=== PATIENT | male | born 1965 | race Caucasian/White ===

== ENCOUNTER 2017-08-27 13:37 | Inpatient (IN) ==
--- NOTE | 2017-08-27 15:59 | Emergency Department Note ---
START Narrative - START START: I examined this patient and my medical decision-making was reviewed with the Resident Physician. I agree with the documented findings, disposition and treatment plan as described except to the extent set forth below. 51-year-old male presents emergency room for right foot and ankle swelling. The swelling has extended approximately up to the knee. No history of DVT. He also had a small abscess on the fifth toe opened up earlier last week with some pus drainage. It is now necrotic appearing on the end. This could be an old blood blister that is healing over as well. We will obtain some plain films of the foot to rule out any gas formation and will also do a right lower extremity Doppler to rule out any DVT as well as some screening lab work. His left leg does not appear anything close to what the right leg looks like. He denies chest pain or shortness of breath. No fevers.
[2017-08-27 16:15] LABS: Basophils # 0.1 K/mcL (0.0-0.2); Basophils % 0.7 %; Eosinophils # 0.3 K/mcL (0.0-0.6); Eosinophils % 3.2 %; Hematocrit 43.1 % (37.5-50.1); Hemoglobin 14.1 g/dL (12.9-16.9); Immature Granulocytes % 0.5 % (0-4); Lymphocytes # 1.9 K/mcL (0.6-4.6); Lymphocytes % 22.8 %; Mean Corpuscular HGB Conc 32.7 g/dL (31.6-35.5); Mean Corpuscular Hemoglobin 29.3 pg (28.0-33.3); Mean Corpuscular Volume 89.6 fL (83.0-100.0); Mean Platelet Volume 9.6 fL (9.4-12.4); Monocytes # 0.8 K/mcL (0.0-1.3); Monocytes % 9.3 %; Neutrophils # 5.3 K/mcL (1.6-8.9); Platelet Count 223 K/mcL (140-400); Red Blood Count 4.81 M/mcL (4.19-5.50); Red Cell Distribution Width 12.8 % (11.5-14.5); Segmented Neutrophils % 63.5 %
[2017-08-27 16:29] LABS: Alanine Aminotransferase 24 Units/L (7-52); Albumin 4.4 g/dL (3.5-5.7); Albumin/Globulin Ratio 1.8 (1.1-2.2); Alkaline Phosphatase 60 Units/L (34-104); Aspartate Amino Transferase 19 Units/L (13-39); BUN/Creatinine Ratio 13 (6-26); Bilirubin,Direct 0.2 mg/dL (0.0-0.2); Bilirubin,Indirect 0.7 mg/dL (0.0-1.2); Bilirubin,Total 0.9 mg/dL (0.3-1.0); Blood Urea Nitrogen 12 mg/dL (6-20); Calcium 9.7 mg/dL (8.6-10.3); Carbon Dioxide 26 mEq/L (23-29); Chloride 108 mEq/L (98-107); Globulin 2.4 g/dL (2.4-3.5); Glucose 107 mg/dL (70-105); Osmolality,Calculated 288 (280-300); Potassium 3.8 mEq/L (3.5-5.1); Sodium 139 mEq/L (136-145); Total Protein 6.8 g/dL (6.4-8.9); eGFR For African Americans > 60 (> 60); eGFR For Non-African Americans > 60 (> 60)
--- NOTE | 2017-08-27 17:59 | Emergency Department Note ---
Disposition Clinical Impression: Cellulitis Qualifiers: Site of cellulitis: extremity Site of cellulitis of extremity: lower extremity Laterality: right Qualified Code(s): L03.115 - Cellulitis of right lower limb Disposition: Admitted As Inpatient Condition: Fair Time of Disposition: 18:02 General Adult HPI - General Chief complaint: ED Extremity Problem,Nontraumatic Stated complaint: R foot swelling Time Seen by Provider: 08/27/17 15:05 Source: patient Mode of arrival: ambulatory Limitations: no limitations Nursing Notes Reviewed: Yes Vital Signs Reviewed: Yes - History of Present Illness HPI Narrative: Patient is a 51-year-old male with a past medical history of an MA with status post stent placement 13 years ago and hypertension presenting to the emergency department for the complaint of a right fifth toe infection. Patient states that the infection began initially 4 weeks ago in which his started out as a small pimple and turned into an abscess. He was seen at an urgent care and prescribed 10 days of Bactrim and he states that the abscess opened and drained and now has this black necrotic-appearing tissue over the bottom surface of the toe. He also has swelling of his right lower extremity that has been worsening with surrounding redness. He denies any fevers or nausea. Denies any history of IV drug use. Denies any known injury to the toe. Denies any recent surgeries or long travels. Pain Scale: 10 - Related Data Previous Rx's Medication Instructions Recorded Sulfamethoxazole/Trimeth DS 1 each PO BID #20 tablet 08/07/17 [Bactrim DS] Allergies Allergy/AdvReac Type Severity Reaction Status Date / Time No Known Allergies Allergy Verified 08/27/17 13:43 All systems ED: reviewed and negative except as stated. Constitutional: Denies: fever, chills Eyes: Denies: vision change Cardiovascular: Denies: chest pain Gastrointestinal: Denies: abdominal pain, nausea, vomiting Genitourinary: Denies: urgency, dysuria Musculoskeletal: Denies: back pain, neck pain Integumentary: Reports: lesions (palmar aspect of right fifth toe. RLE swelling. ) Neurological: Denies: headache Past Medical History - Past Medical History Attestation: Yes The following information was validated with the patient. Medical history: Reports: non-contributory, myocardial infarction Surgical history: Reports: no surgical history Psychiatric history: Reports: no psych history - Social History Smoking Status: Current every day smoker Smokeless Tobacco Status: No Alcohol use: Reports: occasionally Drug use: Reports: none Physical Exam CONSTITUTIONAL: Alert and oriented X3, well-nourished, well appearing, in no apparent distress HEAD: Normocephalic; atraumatic. EYES: PERRL, no scleral icterus. NOSE: The nose is normal in appearance without rhinorrhea RESP: Normal chest excursion with respiration; breath sounds clear and equal bilaterally; no wheezes, rhonchi, or rales CARD: Regular rhythm, without murmurs, rub or gallop ABD: Non-distended; non-tender, soft,without rigidity, rebound or guarding EXT: Patient has good pulses bilateral lower extremities. Good sensation. His right lower extremity appears larger than his left and has erythema from the foot up to the knee. There is no induration or fluctuance present. Appears like it could be early cellulitis. SKIN: Normal for age and race; warm and dry; patient has an area of what appears to be either a scab or area of necrosis to the dorsal aspect of his right fifth toe. There is no active drainage at this time. - General Limitations: no limitations General appearance: alert, in no apparent distress Course Course Narrative: Plan at this time is to order an x-ray of the right lower extremity to look for any signs of subcutaneous gas or bone infection and will also order a Doppler ultrasound of the right lower extremity to rule out a DVT. - Reevaluation(s) Reevaluation #1: Discussed with the patient that his foot x-ray does show the soft tissue swelling to the palmar aspect of his small toe however does not show any evidence of osteomyelitis according to radiologist's interpretation. Discussed with family also has no leukocytosis. His Doppler of his right lower extremity was negative for a DVT. Discussed with the patient plan to obtain blood cultures and initiate IV antibiotics with admission to the hospital for further workup and evaluation. Patient agrees with this plan. I discussed the patient' s case with the hospitalist on-call Dr. Panda he agrees to accept the patient. Patient's initial blood pressure was systolic 200 and 5 repeat blood pressure is 180s systolic. Patient states he knows he has a history of hypertension however he takes no medications for this at home. His heart rate also improved during his stay is currently at 71 bpm. Time: 18:01 Vital Signs Temperature 97.6 F 08/27/17 13:39 Pulse Rate 112 08/27/17 13:39 Respiratory Rate 16 08/27/17 13:39 Blood Pressure 204/105 08/27/17 13:39 O2 Sat by Pulse Oximetry 100 08/27/17 13:39 Temperature 97.9 F 08/27/17 19:01 Pulse Rate 66 08/27/17 19:01 Respiratory Rate 16 08/27/17 19:01 Blood Pressure 206/104 08/27/17 19:01 O2 Sat by Pulse Oximetry 98 08/27/17 19:01 Oxygen Delivery Oxygen Delivery Room Air Medical Decision Making - Medical Records Medical records reviewed: Yes I reviewed the patient's medical records. - Lab Data Lab results reviewed: Yes I reviewed the patient's lab results. Result diagrams: 08/27/17 15:58 08/27/17 15:58 Lab Results 08/27/17 08/27/17 Range/Units 15:58 15:58 WBC 8.3 (4.3-11.1) K/mcL RBC 4.81 (4.19-5.50) M/mcL Hgb 14.1 (12.9-16.9) g/dL Hct 43.1 (37.5-50.1) % MCV 89.6 (83.0-100.0) fL MCH 29.3 (28.0-33.3) pg MCHC 32.7 (31.6-35.5) g/dL RDW 12.8 (11.5-14.5) % Plt Count 223 (140-400) K/mcL MPV 9.6 (9.4-12.4) fL Immature Gran % 0.5 (0-4) % Seg Neutrophils % 63.5 % Lymphocytes % 22.8 % Monocytes % 9.3 % Eosinophils % 3.2 % Basophils % 0.7 % Neutrophils # 5.3 (1.6-8.9) K/mcL Lymphocytes # 1.9 (0.6-4.6) K/mcL Monocytes # 0.8 (0.0-1.3) K/mcL Eosinophils # 0.3 (0.0-0.6) K/mcL Basophils # 0.1 (0.0-0.2) K/mcL Sodium 139 (136-145) mEq/L Potassium 3.8 (3.5-5.1) mEq/L Chloride 108 H (98-107) mEq/L Carbon Dioxide 26 (23-29) mEq/L BUN 12 (6-20) mg/dL Creatinine 0.91 (0.70-1.30) mg/dL Est GFR ( Amer) > 60 (> 60) Est GFR (Non-Af Amer) > 60 (> 60) BUN/Creatinine Ratio 13 (6-26) Glucose 107 H (70-105) mg/dL Calculated Osmolality 288 (280-300) Calcium 9.7 (8.6-10.3) mg/dL Total Bilirubin 0.9 (0.3-1.0) mg/dL Direct Bilirubin 0.2 (0.0-0.2) mg/dL Indirect Bilirubin 0.7 (0.0-1.2) mg/dL AST 19 (13-39) Units/L ALT 24 (7-52) Units/L Alkaline Phosphatase 60 (34-104) Units/L Serum Total Protein 6.8 (6.4-8.9) g/dL Albumin 4.4 (3.5-5.7) g/dL Globulin 2.4 (2.4-3.5) g/dL Albumin/Globulin Ratio 1.8 (1.1-2.2) - Radiology Data Radiology results reviewed: Yes I reviewed the patient's radiology results. Toe X-Ray 08/27/17 15:21 IMPRESSION: There is soft tissue swelling and likely ulceration involving the small toe. At this time, however, no radiographic evidence of osteomyelitis is detected. D/ / Otis Sage MD / Otis Sage MD Interpreting Provider: Otis Sage MD
[2017-08-27] MEDS ORDERED: Naloxone 0.4 MG/ML INJ IVP PRN (18:44)
--- NOTE | 2017-08-27 19:00 | Internal Med History&Physical ---
Date of Encounter: 08/27/17 Time of Encounter: 18:00 Assessment and Plan (1) Cellulitis Current visit: No Status: Acute Acute cellulitis of the RLE. Pt. reports pain and swelling in fifth digit of right foot for almost one month. Went to Urgent Care and placed on Bactrim. Finished Bactrim and pain/swelling increased in foot one week ago. Pain/ swelling extended up right leg to knee w/i past 4 days. Pt. placed on vancomycin in ED. Pt. is not currently sepsis criteria w/WBC of 8.3, RR of 16, HR of 66, and temp of 97.9F. BP currently 206/104. Blood cultures x2. Continuous cardiac telemetry. CT of the rt foot w/contrast ordered stat to r/o gas/fluid presence. Will continue IVPB vancomycin w/pharmacy dosing and add IVPB Rocephin 2,000 mg daily. Will adjust abx coverage based on culture results. Monitor pt. and f/u labs for signs of increasing infection/sepsis criteria. Supplemental O2 w/titration and SpO2 monitoring PRN. Falls/safety precautions. Pt. discussed w/Dr. Felipe who agrees w/plan of care. Pt. is high risk for further morbidity and infection based on worsening sx following OP PO abx, hx, and risk factors w/o medications. Inpatient. Qualifiers: Site of cellulitis: extremity Site of cellulitis of extremity: lower extremity Laterality: right Qualified Code(s): L03.115 - Cellulitis of right lower limb (2) Pain of right lower extremity Current visit: No Status: Acute Acute pain, erythema, and edema of RLE from foot to knee. Pt. reports that he does not like pain medications and would rather avoid. Tylenol 650 mg Q6HR PRN ordered and will add hydrocodone PRN for moderate/breakthrough pain if warranted. Falls/safety precautions. (3) HTN (hypertension) Current visit: No Status: Chronic Hx of chronic HTN w/o medication coverage currently. Will monitor pt. and VS. Hydralazine 10 mg IVP Q6HR PRN if SBP >180 and/or DBP >100 w/order to not administer if HR >100. Qualifiers: Hypertension type: essential hypertension Qualified Code(s): I10 - Essential (primary) hypertension (4) HLD (hyperlipidemia) Current visit: No Status: Chronic Hx of chronic HLD. Pt. stopped taking statin d/t bilateral leg pain. No current statin coverage. Lipid panel in a.m. labs. Qualifiers: Hyperlipidemia type: pure hypercholesterolemia Qualified Code(s): E78.00 - Pure hypercholesterolemia, unspecified; E78.0 - Pure hypercholesterolemia (5) Prediabetes Current visit: No Status: Chronic Hx of pre-diabetes w/o knowledge of current status. Pt. does not take any medications for diabetes currently. A1c in a.m. labs. (6) Gout Current visit: No Status: Chronic Hx of chronic gout. Pt. states he takes prednisone 10 mg for flare-ups PRN which works for him. Uric acid ordered. Qualifiers: Gout site: unspecified site Gout etiology: unspecified cause Chronicity: chronic Presence of tophus: without tophus Qualified Code(s): M1A.9XX0 - Chronic gout, unspecified, without tophus (tophi) (7) Tobacco abuse Current visit: No Status: Chronic Hx of chronic tobacco abuse. Pt. reports smoking 2-3 PPD. Denies interest in quitting at this time. Denies need for nicotine patch. (8) DVT prophylaxis Current visit: No Status: Acute Lovenox 40 mg SQ 0600 daily for DVT prophylaxis. Monitor pt. for signs of bleeding. Internal Medicine - H&P: HPI Chief complaint: Swelling and pain in RLE Admitted From: Emergency Dept Plans for Post Hospital Care: Home History of present illness: Mr. Arnold is a 51 year old male w/PMH of previous DE w/stent x1, hypertension, hyperlipidemia, prediabetes, and gout presents from the ED with chief complaint of pain and swelling in his right lower extremity that began 3 weeks ago. Patient states he went to urgent care due to his fifth digit on his right foot being painful and swollen. Patient states he was diagnosed with cellulitis and placed on by mouth Bactrim. Patient states he finished Bactrim but foot became more swollen and painful one week ago with swelling extending up his lower leg to the knee 4 days ago. Patient states no alleviating or aggravating factors. Reports he must sleep in chair with rt. foot on flat on floor to prevent throbbing at night. Pt. denies recent illness, fever, chills, nausea, vomiting, headache, cough, changes in vision, chest pain, palpitations, abdominal pain, diarrhea, constipation, dizziness, lightheadedness, unusual bleeding, pre- syncope, or syncope. Past Med Surg Social Fam HX - Past Medical History Source: patient, old records reviewed, obtained from family Medical history: diabetes (Pre-diabetes), hyperlipidemia, hypertension, myocardial infarction, other (Gout) Psychiatric history: no psych history - Past Surgical History Surgical History: no surgical history - Social History Smoking Status: Current every day smoker Packs per day: 2-3 PPD Smokeless Tobacco Status: No Alcohol use: occasionally Drug use: none Current living situation: Home, With Family Activity Level: Independent ambulation, Very active Recent Out of Country Travel Within the Last 8 Weeks: No Exposure or Possible Exposure to Illness During Travel: No - Family History Father Race: Family Member Ethnicity: Non- Living Status: Age at : 72 Cause of : Gangrene Hx Family Cardiac Disorders: Yes (DE, CABG (Double), HLD, HTN) Hx Family Endocrine Disorder: Yes (DM) Hx Family Musculoskeletal Disorders: Yes (Gout) Mother Race: Family Member Ethnicity: Non- Living Status: Still Living Hx Family Cardiac Disorders: Yes (CVA, HTN) Hx Family Endocrine Disorder: Yes (DM) Brother Race: Family Member Ethnicity: Non- Living Status: Still Living Hx Family Endocrine Disorder: Yes (DM) Sister Race: Family Member Ethnicity: Non- Living Status: Still Living Hx Family Psychosocial Disorders: No Internal Medicine - H&P: Meds Sulfamethoxazole/Trimeth DS [Bactrim DS] 1 each PO BID #20 tablet 08/07/17 [Rx] 3 Allergy/AdvReac Type Severity Reaction Status Date / Time No Known Allergies Allergy Verified 08/27/17 13:43 All Systems PM: A 10-system review of systems was performed and is negative for pertinent findings except as documented above in the HPI. - Constitutional Constitutional: as per HPI, no chills, no fever(s), no night sweats - EENT Eyes: no change in vision, no discharge, no pain, no photophobia Ears: no ear discharge, no ear pain, no tinnitus Nose, mouth and throat: no dysphagia, no nasal discharge, no neck pain, no sore throat - Breasts Breasts: as per HPI - Cardiovascular Cardiovascular ROS IM: no chest pain, no diaphoresis, no dyspnea, no lightheadedness, no palpitations, no syncope - Respiratory Respiratory: no cough, no dyspnea, no wheezing, no excessive phlegm production - Gastrointestinal Gastrointestinal: no abdominal pain, no diarrhea, no hematemesis, no hematochezia, no melena, no nausea, no vomiting - Genitourinary Genitourinary ROS male: as per HPI - Musculoskeletal Musculoskeletal ROS IM: no numbness, no tingling - Integumentary Integumentary IM: as per HPI, erythema (Rt fifth digit of foot), sores (Rt fifth digit of foot) - Neurological Neurological ROS: no confusion, no convulsions, no focal weakness, no numbness, no tingling, no tremor(s) - Psychiatric Psychiatric: as per HPI - Endocrine Endocrine IM: as per HPI - Hematologic/Lymphatic Hematologic/Lymphatic: no easy bruising - Allergic/Immunologic Allergic/Immunologic: as per HPI - Constitutional Vitals: Temp Pulse Resp BP Pulse Ox 97.6 F 102 16 179/95 96 08/27/17 13:39 08/27/17 18:15 08/27/17 18:15 08/27/17 18:15 08/27/17 18:15 General appearance: Present: cooperative, mild distress (Pain in right foot), A& O X 3, pleasant, answers questions appropriately - Head Head exam: Present: atraumatic, normocephalic - Eye Eye exam: Present: PERRL, conjuntiva pink, sclera anicteric Pupils: Present: PERRL - ENT ENT exam: Present: normal exam - Neck Neck exam general surgery: Present: normal inspection, supple, trachea midline. Absent: lymphadenopathy - Respiratory Respiratory exam: Present: CTAB. Absent: accessory muscle use, rales, rhonchi, wheezes - Cardiovascular Cardiovascular exam: Present: tachycardia - GI/Abdominal GI/Abdominal exam: Present: normal bowel sounds, soft, no peritoneal signs. Absent: distended, tenderness - Rectal Rectal exam: Present: deferred - Additional comments: exam deferred. - Extremities Exam Extremities exam: Present: warm, radial pulses palpable and symmetrical. Absent : calf tenderness, cyanotic, pedal edema - Back Exam Back exam: Present: normal inspection - Neurological Exam Neurological exam: Present: CN II-XII intact, oriented X3, no focal deficits. Absent: pronater drift, facial droop, speech deficit - Psychiatric Psychiatric exam: Present: normal affect, normal mood - Skin Skin exam: Present: dry, intact Internal Med - H&P Results - Labs CBC & Chem 7: 08/27/17 15:58 08/27/17 15:58 - Diagnostic Studies Other Images Additional comments: Impressions Toe X-Ray 08/27/17 15:21 IMPRESSION: There is soft tissue swelling and likely ulceration involving the small toe. At this time, however, no radiographic evidence of osteomyelitis is detected. D/ / Otis Sage MD / Otis Sage MD Interpreting Provider: Otis Sage MD
[2017-08-27] MEDS: cefTRIAXone 2,000 MG in Water for inj. (sterile) 20 ML 20 ML IVP SCH (21:45)
[2017-08-28 05:03] LABS: Basophils # 0.1 K/mcL (0.0-0.2); Basophils % 0.8 %; Eosinophils # 0.4 K/mcL (0.0-0.6); Eosinophils % 4.8 %; Hematocrit 41.7 % (37.5-50.1); Hemoglobin 13.8 g/dL (12.9-16.9); Immature Granulocytes % 0.6 % (0-4); Lymphocytes # 2.2 K/mcL (0.6-4.6); Lymphocytes % 26.3 %; Mean Corpuscular HGB Conc 33.1 g/dL (31.6-35.5); Mean Corpuscular Hemoglobin 29.2 pg (28.0-33.3); Mean Corpuscular Volume 88.2 fL (83.0-100.0); Mean Platelet Volume 9.6 fL (9.4-12.4); Monocytes # 0.9 K/mcL (0.0-1.3); Neutrophils # 4.9 K/mcL (1.6-8.9); Platelet Count 223 K/mcL (140-400); Red Blood Count 4.73 M/mcL (4.19-5.50); Red Cell Distribution Width 13.1 % (11.5-14.5); Segmented Neutrophils % 57.5 %
[2017-08-28 05:22] LABS: Alanine Aminotransferase 24 Units/L (7-52); Albumin 4.6 g/dL (3.5-5.7); Albumin/Globulin Ratio 1.8 (1.1-2.2); Alkaline Phosphatase 65 Units/L (34-104); Aspartate Amino Transferase 20 Units/L (13-39); BUN/Creatinine Ratio 14 (6-26); Bilirubin,Total 0.9 mg/dL (0.3-1.0); Blood Urea Nitrogen 12 mg/dL (6-20); Calcium 9.7 mg/dL (8.6-10.3); Carbon Dioxide 23 mEq/L (23-29); Chloride 106 mEq/L (98-107); Chol/HDL Ratio 5.1 (0-4.9); Cholesterol 231 mg/dL (< 200); Globulin 2.6 g/dL (2.4-3.5); Glucose 107 mg/dL (70-105); HDL Cholesterol 45 mg/dL (40-59); LDL Cholesterol,Calculated 125 mg/dL (0-99); Magnesium 2.1 mg/dL (1.6-2.6); Osmolality,Calculated 284 (280-300); Potassium 4.1 mEq/L (3.5-5.1); Sodium 137 mEq/L (136-145); Total Protein 7.2 g/dL (6.4-8.9); Triglycerides 303 mg/dL (< 150); eGFR For African Americans > 60 (> 60); eGFR For Non-African Americans > 60 (> 60)
[2017-08-28] MEDS: Acetaminophen 325 MG TABLET PO PRN ×2 (05:33→15:16)
[2017-08-28] MEDS: *HR* Enoxaparin 40 MG/0.4 ML SYRINGE SQ SCH (05:34)
[2017-08-28 09:01] LABS: Estimated Average Glucose 128 mg/dl; Hemoglobin A1C 6.1 %
--- NOTE | 2017-08-28 17:06 | Internal Med Progress Note ---
Date of Encounter: 08/28/17 Time of Encounter: 11:00 - Assessment and plan (1) Toe ulcer, right Current Visit: Yes Status: Acute Assessment and plan: -Patient with necrotic fifth toe on exam -X-ray of toe did not show any evidence of osteomyelitis. -Will continue IV vancomycin and ceftriaxone -Podiatry consulted and appreciate recommendations Qualifiers: Non-pressure ulcer stage: limited to breakdown of skin Qualified Code(s): L97.511 - Non-pressure chronic ulcer of other part of right foot limited to breakdown of skin (2) HTN (hypertension) Current Visit: No Status: Chronic Assessment and plan: Patient's blood pressures are elevated We will start patient on metoprolol tartrate 50 mg twice daily Continue IV hydralazine as needed Qualifiers: Hypertension type: essential hypertension Qualified Code(s): I10 - Essential (primary) hypertension (3) DVT prophylaxis Current Visit: No Status: Acute Assessment and plan: Lovenox subcutaneous - Subjective Interval history: Patient still with significant right foot pain this morning in addition to pedal edema - Constitutional Vitals: Temp Pulse Resp BP Pulse Ox 98.0 F 82 16 184/100 95 08/28/17 15:33 08/28/17 15:33 08/28/17 15:33 08/28/17 15:33 08/28/17 15:33 General appearance: Present: cooperative, mild distress (Pain in right foot), A& O X 3, pleasant, answers questions appropriately - Respiratory Respiratory exam: Present: CTAB. Absent: accessory muscle use, rales, rhonchi, wheezes - Cardiovascular Cardiovascular exam: Present: RRR, +S1, +S2. Absent: diastolic murmur, gallop, rubs, systolic murmur - Expanded Lower Extremities Exam Lower Leg exam: Present: erythema, swelling Ankle exam: Present: erythema, swelling Foot/Toe exam: Present: swelling, tenderness (Right foot edema with right fifth toe necrotic digit) Internal Medicine: Result - Labs CBC & Chem 7: 08/28/17 04:43 08/28/17 04:43 Labs: Short CBC 08/28/17 Range/Units 04:43 WBC 8.5 (4.3-11.1) K/mcL Hgb 13.8 (12.9-16.9) g/dL Hct 41.7 (37.5-50.1) % Plt Count 223 (140-400) K/mcL Neutrophils # 4.9 (1.6-8.9) K/mcL BMP 08/28/17 04:43 Sodium 137 Potassium 4.1 Chloride 106 Carbon Dioxide 23 BUN 12 Creatinine 0.87 Glucose 107 H Calcium 9.7 Liver Function 08/28/17 Range/Units 04:43 Total Bilirubin 0.9 (0.3-1.0) mg/dL AST 20 (13-39) Units/L ALT 24 (7-52) Units/L Alkaline Phosphatase 65 (34-104) Units/L Albumin 4.6 (3.5-5.7) g/dL Consult Discharge Plan - Plan Referrals: NONE,PCP [Primary Care Provider] - Shashank Mijares [Family Provider] -
[2017-08-28] MEDS: cefTRIAXone 2,000 MG in Water for inj. (sterile) 20 ML 20 ML IVP SCH (20:04)
[2017-08-29] MEDS: *HR* Enoxaparin 40 MG/0.4 ML SYRINGE SQ SCH (04:56)
[2017-08-29] MEDS: Acetaminophen 325 MG TABLET PO PRN (04:56)
[2017-08-29 06:31] VITALS: BP 139/79
[2017-08-29 06:35] LABS: Basophils # 0.1 K/mcL (0.0-0.2); Basophils % 0.9 %; Eosinophils # 0.4 K/mcL (0.0-0.6); Eosinophils % 4.5 %; Hematocrit 43.8 % (37.5-50.1); Hemoglobin 14.2 g/dL (12.9-16.9); Immature Granulocytes % 0.7 % (0-4); Immature Platelets 3.8 % (1.1-6.1); Lymphocytes # 1.8 K/mcL (0.6-4.6); Lymphocytes % 19.5 %; Mean Corpuscular HGB Conc 32.4 g/dL (31.6-35.5); Mean Corpuscular Hemoglobin 29.5 pg (28.0-33.3); Mean Corpuscular Volume 91.1 fL (83.0-100.0); Mean Platelet Volume 9.9 fL (9.4-12.4); Monocytes # 0.9 K/mcL (0.0-1.3); Monocytes % 10.3 %; Neutrophils # 5.9 K/mcL (1.6-8.9); Nucleated Red Blood Cells 0.5 /100 WBC (0); Platelet Count 251 K/mcL (140-400); Red Blood Count 4.81 M/mcL (4.19-5.50); Red Cell Distribution Width 13.1 % (11.5-14.5); Segmented Neutrophils % 64.1 %
[2017-08-29 07:10] LABS: Alanine Aminotransferase 22 Units/L (7-52); Albumin 4.4 g/dL (3.5-5.7); Albumin/Globulin Ratio 1.7 (1.1-2.2); Alkaline Phosphatase 65 Units/L (34-104); Aspartate Amino Transferase 17 Units/L (13-39); BUN/Creatinine Ratio 17 (6-26); Bilirubin,Total 0.8 mg/dL (0.3-1.0); Blood Urea Nitrogen 17 mg/dL (6-20); Calcium 9.7 mg/dL (8.6-10.3); Carbon Dioxide 21 mEq/L (23-29); Chloride 107 mEq/L (98-107); Globulin 2.6 g/dL (2.4-3.5); Glucose 104 mg/dL (70-105); Osmolality,Calculated 284 (280-300); Potassium 4.3 mEq/L (3.5-5.1); Sodium 136 mEq/L (136-145); eGFR For African Americans > 60 (> 60); eGFR For Non-African Americans > 60 (> 60)
--- NOTE | 2017-08-29 10:38 | Podiatry Consult Note ---
Date of Encounter: 08/29/17 Time of Encounter: 10:00 Assessment and Plan (1) Toe ulcer, right Current visit: Yes Status: Acute Ischemic ulceration to the distal aspect of toe #5 right foot. RIGHT JAVID- 0.49 LEFT JAVID- 0.91 CT of right foot negative for fluid collection or osteomyelitis. Xray of toe #5 right foot did not show any bony erosion. Venous duplex: Right lower extremity: normal superficial and deep exam. WBC: 9.2, hemoglobin A1C: 6.1 Plan: Recommend consult to Vascular for ischemic ulceration and JAVID of 0.49, right. Spoke with Dr. Arana. Wound care cleanse toe daily with mild soap and water, pat dry, apply santyl with saline moistened 4x4 gauze and tape. Will continue to follow patient closely. Qualifiers: Non-pressure ulcer stage: limited to breakdown of skin Qualified Code(s): L97.511 - Non-pressure chronic ulcer of other part of right foot limited to breakdown of skin (2) Tobacco abuse Current visit: No Status: Chronic History of Present Illness HPI: Mr. Arnold is a 51 year old male admitted to [facility] for cellulitis of the RLE. Patient has a medical history significant for HTN, hyperlipidemia, gout, ND with a one stent. Patient states approximately three weeks ago toe #5 of the right foot became red with an abscess and states there was drainage from underneath the toe nail. Patient denies any injury or trauma. Patient was treated in the Urgent Care on 08/07/17 and prescribed Bactrim. Per family at bedside they have been soaking the toe in epsom salt baths. Patient states the skin on the end of toe then turned black and has had increased swelling to the right foot with pain. Patient states the 5th toe of the right foot starts to burn when he has his feet elevated and the only way to alleviate the discomfort is putting his foot flat on the ground. Patient states he has had to sleep with his feet in the dependent position. Patient does smoke 2-3 pack per day of cigarettes. No c/o fever or chills. Patient denies any surgeries on his legs or feet. Patient states he has never been checked for diabetes. Patient had an Xray of the 5th toe right foot upon arrival, which was unremarkable and a CT of the RLE. CT did not show any fluid collection or osteomyelitis. Patient had ABIs, Right: 0.49, Left: 0.91. Venous duplex: Right lower extremity: normal superficial and deep exam. Past Med Surg Social Fam HX - Past Medical History Medical history: non-contributory, myocardial infarction Psychiatric history: no psych history - Past Surgical History Surgical History: no surgical history - Social History Smoking Status: Current every day smoker Packs per day: 2 Smokeless Tobacco Status: No Alcohol use: occasionally Drug use: none - Family History Father Race: Family Member Ethnicity: Non- Living Status: Age at : 72 Cause of : Gangrene Hx Family Cardiac Disorders: Yes (ND, CABG (Double), HLD, HTN) Hx Family Endocrine Disorder: Yes (DM) Hx Family Musculoskeletal Disorders: Yes (Gout) Mother Name: Mildred Bonilla Age: 80 Race: Family Member Ethnicity: Non- Living Status: Still Living Hx Family Cardiac Disorders: No Hx Family Respiratory Disorders: No Hx Family Cancer: No Hx Family GI Disorders: No Hx Family Genitourinary Disorders: No Hx Family Endocrine Disorder: Yes (DM) Hx Family Musculoskeletal Disorders: No Hx Family Neuromuscular Disorders: No Hx Family Neurologic Disorders: No Hx Family HEENT Disorders: No Hx Family Autoimmune Disorders: No Hx Family Reproductive Disorders: No Hx Family Psychosocial Disorders: No Hx Family Medical Disorders: No Brother Race: Family Member Ethnicity: Non- Living Status: Still Living Hx Family Endocrine Disorder: Yes (DM) Sister Race: Family Member Ethnicity: Non- Living Status: Still Living Hx Family Psychosocial Disorders: No Medications and Allergies Aspirin [Adult Aspirin Regimen] 81 mg PO DAILY 08/28/17 [History] 3 Allergy/AdvReac Type Severity Reaction Status Date / Time No Known Allergies Allergy Verified 08/28/17 10:58 All Systems Reviewed: The remainder of the systems were reviewed and are negative Physical Exam - Constitutional Vitals: Temp Pulse Resp BP Pulse Ox 98.3 F 75 17 139/79 97 08/29/17 06:28 08/29/17 06:28 08/29/17 06:28 08/29/17 06:28 08/29/17 06:28 Exam: General appearance: alert awake oriented X 3. Calm and pleasant, no acute distress.. Vascular: Pedal pulses, DP/PT left and right DP audible with doppler , No evidence of cyanosis or rubor, Edema graded at 1+/4 left, 2+/4 right Skin Temperature warm, No calf pain with manual compression. capillary refill time is immediate to digits. Neurologic: Sensation intact with light touch to foot. . Ulcer: Dried eschar to the distal aspect of toe #5 right foot consistent with an ischemic ulceration, surrounding skin to the plantar aspect is pallored. No pus, no odor, no fluctuance, no streaking, no odor. Results - Labs Result Diagrams: 08/29/17 04:39 08/29/17 04:39 Labs: Abnormal lab results Nucleated RBCs/100 WBC 0.5 /100 WBC (0) H 08/29/17 04:39 ESR 26 mm/hr (0-10) H 08/27/17 19:11 Carbon Dioxide 21 mEq/L (23-29) L 08/29/17 04:39 Hemoglobin A1c 6.1 % (-5.6) H 08/28/17 04:43 Uric Acid 8.4 mg/dL (2.3-7.6) H 08/27/17 19:11 C-Reactive Protein 10 mg/L (Less than 10) H 08/27/17 19:11 Triglycerides 303 mg/dL (< 150) H 08/28/17 04:43 Cholesterol 231 mg/dL (< 200) H 08/28/17 04:43 LDL Cholesterol, Calc 125 mg/dL (0-99) H 08/28/17 04:43 VLDL Cholesterol, Calc 61 mg/dL (< 31) H 08/28/17 04:43 Cholesterol/HDL Ratio 5.1 (0-4.9) H 08/28/17 04:43 H & H 08/29/17 Range/Units 04:39 Hgb 14.2 (12.9-16.9) g/dL Hct 43.8 (37.5-50.1) % All other labs normal. Consult Discharge Plan - Plan Referrals: NONE,PCP [Primary Care Provider] - Shashank Mijares [Family Provider] -
[2017-08-29] MEDS ORDERED: Aminoglycoside Consult 1 EACH MC ONE (13:09)
--- NOTE | 2017-08-29 17:08 | Discharge Summary ---
Date of Encounter: 08/29/17 Time of Encounter: 11:00 - Discharge Diagnosis (1) Toe ulcer, right Priority: Primary Status: Acute Qualifiers: Non-pressure ulcer stage: limited to breakdown of skin Qualified Code(s): L97.511 - Non-pressure chronic ulcer of other part of right foot limited to breakdown of skin (2) HTN (hypertension) Priority: Secondary Status: Chronic Qualifiers: Hypertension type: essential hypertension Qualified Code(s): I10 - Essential (primary) hypertension Hospital course: Patient is a 51-year-old male with past medical history significant for [place] w/ stent x1, hypertension, hyperlipidemia, prediabetes, and gout who presents to the ER on 08/27/17 due to right lower extremity pain. Patient reported that his pain began approximately 2 weeks prior to this admission. Patient stated he went to urgent care due to his fifth digit on his right foot being painful and swollen. Patient also stated that he was diagnosed with cellulitis and placed on by mouth Bactrim. He finished Bactrim but foot became more swollen and painful one week ago with swelling extending up his lower leg to the knee 4 days prior to this admission. During patients hospital stay, JAVID was ordered which showed left JAVID of 0.91 but a right JAVID of 0.49. Podiatry was consulted and suspects ischemic ulceration to the distal aspect of fifth digit of right foot. Recommendations for vascular consult for ischemic ulceration with an JAVID of 0.49 which was made. Patient however left AGAINST MEDICAL ADVICE after risk of not having vascular workup was explained including loss of limb and patient verbalized understanding. - Time Spent with Patient Total time spent providing and/or coordinating discharge services: Less than 30 minutes - Discharge Medications Home Medications: Aspirin [Adult Aspirin Regimen] 81 mg PO DAILY 08/28/17 [History] Allergies/Adverse Reactions: 3 Allergy/AdvReac Type Severity Reaction Status Date / Time No Known Allergies Allergy Verified 08/28/17 10:58 Date of admission: 08/27/17 18:44 Primary care physician: PCP NONE Consults: 08/28/17 17:15 Consult to Podiatry [CONS] Routine Consulting Provider: Podiatry [facility] Reason for Consult: Right fifth is ulceration Call Completed: No 08/29/17 13:00 Consult to Vascular Surgery [CONS] Routine Consulting Provider: Vascular Surgery [place] Reason for Consult: Abnormal JAVID, ulceration toe #5 right foot. Call Completed: Yes - Constitutional Vitals: Temp Pulse Resp BP Pulse Ox 98.3 F 75 17 139/79 97 08/29/17 06:28 08/29/17 06:28 08/29/17 06:28 08/29/17 06:28 08/29/17 06:28 General appearance: Present: cooperative, mild distress (Pain in right foot), A& O X 3, pleasant, no acute distress, answers questions appropriately - Patient Status Disposition: Left Against Medical Advice Condition: Fair - Discharge Instructions Follow Up With: NONE,PCP [Primary Care Provider] - Shashank Mijares [Family Provider] -
--- NOTE | 2017-08-31 18:53 | Electrocardiograph Report ---
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
== END 2017-08-29 13:10 | disposition left against medical advice (07) | DRG 593 ==
LOC: EMEROO 13:37 → 3NENU 13:37
PROVIDERS: ADMIT Student in an Organized Health Care Education/Training Program; ATTEND Hospitalist

== ENCOUNTER 2018-10-25 08:52 | Inpatient (IN) ==
--- NOTE | 2018-10-25 07:34 | Anesthesia Evaluation PreOp ---
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 Any Significant HX Other Medical History: Other (prediabetes) Anesthesia History: No Prior Anesthetic Complications, Past Anesthesia (partial toe amp, stents RLE) Alcohol Use: occasionally Drug use: none Medications and Allergies Aspirin [Adult Aspirin Regimen] 81 mg PO DAILY 08/28/17 [History] Clindamycin [Cleocin] 150 mg PO Q6HR #40 capsule 09/21/18 [Rx] Clopidogrel Bisulfate [Plavix] 75 mg PO DAILY #30 tablet 09/21/18 [Rx] Allergy/AdvReac Type Severity Reaction Status Date / Time clindamycin AdvReac Rash Verified 10/25/18 09:52 - Meds/Allergy Pre-op Review Medications Reviewed: Yes Allergies Reviewed: Yes Beta Blockers on Current Med List: Yes If Beta Blockers taken, Date/Time (Last Dose taken): today 0630 Anesthesia Results - Labs Laboratory Tests 09/23/18 09/23/18 09:19 09:19 Hgb 13.5 Hct 40.8 Plt Count 217 Sodium 136 Potassium 4.4 BUN 17 Creatinine 0.89 Anesthesia Exam Selected Entries 10/25/18 09:12 Temperature 98.5 F Pulse Rate 66 Respiratory Rate 18 Blood Pressure 144/79 O2 Sat by Pulse Oximetry 97 Weight: 86kg NPO (# of Hours): 8 - HEENT Pupil (Motor): EOMI Mallampati: II Teeth: Missing, Poor dentition Oral Opening: Greater than 3 - OPERATOR HELPER LOC: Oriented OPERATOR HELPER Motor: Normal RUE, Normal LUE, Normal RLE, Normal LLE, Normal Face OPERATOR HELPER Sensory: Normal: RUE, LUE, RLE, LLE, Face - Cardiac Rhythm: Regular Murmur: None - Pulmonary Breath Sounds: bilateral Clear Respiratory Effort: Symmetrical Anesthesia Assess/Plan ASA Score: 3 Level of consciousness: Cooperative, Oriented, Tranquil Anesthetic Plan: General Monitoring Plan: Standard Monitors, A-Line Recovery Plan: PACU (agrees to GA and a-line. Will place ECOM tube)
[2018-10-25] MEDS ORDERED: *HR* Midazolam HCl 2 MG/2 ML VIAL ONE (09:09)
[2018-10-25] MEDS ORDERED: *HR* FentaNYL (PF) 100 MCG/2 ML VIAL ONE (09:09)
[2018-10-25] MEDS ORDERED: *HR* Propofol 200 MG/20 ML VIAL IVP ONE ×2 (09:09→14:36)
[2018-10-25] MEDS ORDERED: Dexamethasone 4 MG/ML VIAL ONE (09:14)
[2018-10-25] MEDS ORDERED: Ondansetron 4 MG/2 ML VIAL ONE (09:14)
[2018-10-25] MEDS ORDERED: *HR* Rocuronium Bromide 50 MG/5 ML VIAL ONE (09:14)
[2018-10-25] MEDS ORDERED: Lidocaine -MPF 2% 2 ML VIAL ONE (09:14)
[2018-10-25] MEDS ORDERED: *HR* Remifentanil 2 MG VIAL IVP ONE (09:22)
[2018-10-25] MEDS ORDERED: Albuterol 2.5 MG/3 ML NEBULIZER IH ONE (09:42)
[2018-10-25] MEDS ORDERED: CeFAZolin Syr 2,000MG/20 ML 2,000 MG/20 ML SYRINGE IVPB ONE (09:42)
[2018-10-25] MEDS ORDERED: Ringers Solution, Lactated 1,000 ML IVC SCH ×2 (09:45→10:30)
[2018-10-25] MEDS ORDERED: Heparin 1,000 UNITS/500 mL 500 ML ONE (10:18)
[2018-10-25] MEDS ORDERED: *HR* OxyCODONE Immed Rel 5 MG TABLET PO PRN ×2 (10:28→17:13)
[2018-10-25] MEDS ORDERED: *HR* FentaNYL (PF) 100 MCG/2 ML VIAL IVP PRN (10:28)
--- NOTE | 2018-10-25 10:32 | History & Physical Report ---
Date of Encounter: 10/25/18 Time of Encounter: 10:20 24 Hour HP Update - Instructions Instructions: If the History and Physical is less than 30 days old and was completed prior to A.M. admission and or procedure and has NOT been updated on calendar day of procedure please complete this update prior to performing procedure. - Update Patient reports changes in Medical Condition: No Changes in examination, assessment, or condition: No Changes in Medication: No Preop tests/diagnostics Reviewed: Yes Surgery Remains Indicated: Yes Consent for Planned Operative Procedure(s) Verified: Yes - Pre-Operative Checklist Preoperative Checklist Indicated: Yes Prophylactic Antibiotic Ordered: Yes (vancomycin due to MRSA risk) Home Medications Include Beta Adis: Yes Beta Adis Taken Today (Day of Surgery): Yes Beta Adis Taken Yesterday (Day Prior to Surgery): Yes Is VTE Prophylaxis Indicated?: Yes
[2018-10-25] MEDS ORDERED: Lidocaine -MPF 2% 5 ML VIAL ONE (10:38)
[2018-10-25] MEDS ORDERED: Vancomycin 1,000 MG, Sodium Chloride IRRigation 1,000 ML IR ONE (10:45)
[2018-10-25] MEDS ORDERED: Heparin 1,000 UNITS/500 mL 1,500 ML ONE (11:19)
--- NOTE | 2018-10-25 11:24 | Anesthesia Procedures ---
Date of Encounter: 10/25/18 Time of Encounter: 11:15 Procedures: Anesthesia - Arterial Line Consent obtained: verbal consent Time out performed: Yes Sedation: Versed (mg): 2 Sedation: Fentanyl (mcg): 100 Supplemental Oxygen via Nasal Cannula (L/min): 3 Local Anesthetic: Other (lidocaine 2%) Size (Gauge): 20 Length (inches): 1 3/4 Technique Used: sterile prep Post-Procedure: line taped into place, dry sterile dressing placed Patient tolerated procedure: no complications Complications: none Site: Radial R Vitals: see nurses vitals, VSS throughout
[2018-10-25 12:33] LABS: ABG Base Excess -3 mEq/L (-2 to 3); ABG Chloride 109 mEq/L (98-107); ABG Glucose 105 mg/dL (60-95); ABG HCO3 23 mEq/L (21-27); ABG Ionized Calcium 1.19 mmol/L (1.15-1.35); ABG Oxygen Saturation 100 % (95-98); ABG PCO2 39 mmHg (35-45); ABG PH 7.37 pH Units (7.32-7.45); ABG PO2 507 mmHg (85-104); ABG TCO2 24 mEq/L (20-26)
[2018-10-25] MEDS ORDERED: *HR* Heparin 5,000 UNIT/ML VIAL ONE (14:21)
[2018-10-25] MEDS ORDERED: Protamine Sulfate 50 MG/5 ML VIAL IVP ONE (14:21)
[2018-10-25] MEDS ORDERED: EPHEDrine 50 MG/ML VIAL ONE (14:51)
[2018-10-25] MEDS ORDERED: Vancomycin 1,000 MG VIAL ONE (14:56)
[2018-10-25] MEDS ORDERED: Neostigmine Methylsulfate 3 MG/3 ML SYRINGE ONE (15:19)
--- NOTE | 2018-10-25 16:24 | Operative Note ---
Date of procedure: 10/25/18 Pre-op diagnosis: Peripheral vascular disease with rest pain and ulceration Post-op diagnosis: same Procedure: 1. Right common femoral to right above-knee popliteal bypass with 6 mm ring reinforced PTFE Distaflo mini-cuff graft. 2. Right iliofemoral endarterectomy and deeep femoral endarterectomy. 3. Right popliteal artery endarterectomy. Complications: None Anesthesia: GETA Surgeon: Tee Arana Was there an administrative personal assistant present: No Estimated blood loss (cc): 200 Specimen: Right lower extremity plaque Condition: stable Disposition: PACU Procedure in Detail: Indications: The patient is a 53-year-old male with a history of peripheral vascular disease, tobacco abuse, hypertension, hyperlipidemia and coronary artery disease. The patient was found to have severe peripheral vascular disease with disabling claudication, rest pain and a right fifth digit ulceration was not healing. His found have a right femoral to popliteal artery occlusion. Surgery was recommended to revascularize his leg to reduce his risk of limb loss alleviate his symptoms. Procedure: The patient was identified in the preoperative area. The risks, benefits, and alternatives of the procedure were discussed. All questions were answered. The patient was taken to the operating room and placed in supine position on the operating room table. After the induction of general endotracheal anesthesia, he was cleaned and draped in normal sterile fashion. An oblique incision was made over the right groin sharply. Hemostasis was obtained with electrocautery. Through a process of blunt, sharp, and electrocautery dissection, the right distal extrenal iliac artery and proximal deep and supericial femoral arteries were dissected circumferentially and surrounded with vessel loops. Branching vessels arising from the common femoral artery were also surrounded with vessel loops. An incision was made on the right medial distal thigh sharply. Hemostasis was obtained with electrocautery. Through a process of blunt, sharp, and electrocautery dissection, the distal right above-knee popliteal artery was dissected proximally and distally and surrounded with vessel loops. A graft was tunneled between the popliteal and femoral incisions. The patient received 5000 units of heparin intravenously. Additional heparin was given throughout the case to maintain adequate anticoagulation. The popliteal vessels were occluded and a longitudinal arteriotomy was made in the popliteal artery. Extensive plaque was noted at this level. Using a dental freer and endarterectomy was performed on the distal popliteal artery. Distal endpoints were inspected and no elevated flaps were noted. The distal end of the graft was sutured in place with a running 6-0 Prolene, but not tied. Heparinized saline was infused into the lumen. Tension was applied to the femoral vessel loops. An arteriotomy was made in the common femoral artery. The previously existing stent was noted to extend from the superficial femoral artery into the origin of the common femoral artery and over lying the deep femoral artery. Extensive plaque was also noted extending from the external iliac artery through the common femoral artery and into the deep femoral artery. Weakly pulsatile flow was noted from the external iliac artery. The proximal portion of the stent was excised. Then using a dental freer and endarterectomy was performed in the left distal external iliac, common femoral and deep femoral artery. Strong retrograde flow was noted through the deep femoral artery has strong pulsatile flow was noted through the sternal iliac artery. Endpoints were inspected and no elevated flaps noted. The graft was anastamosed with a running 6-0 Prolene. The vessels were flushed through the graft and heparin was infused into the lumen. The graft was clamped with an atraumatic clamp. Thrombin and gelfoam were used at the proximal anastamosis. The distal arterial anastomosis was completed and prior to completing the closure, the popliteal vessels were flushed and reoccluded. Heparinized saline was infused into the lumen. The anastamosis was tied and then flow was restored. Polyphasic signals were noted distal to the distal anastomosis. However no signals were noted at the level of the ankle. The distal end of the graft was opened longitudinally. A 4-Arabic Beth embolectomy catheter was advanced into the tibial vessels multiple times. The catheter passed easily and no thrombus was retrieved. After multiple negative passes was determined there was no evidence of distal obstruction. The graftotomy was reapproximated with a running 6-0 Prolene. Wounds were irrigated with antibiotic-containing saline. Thrombin and gelfoam were used to aid in hemostasis. Platelet rich and platelet poor plasma were infused into the wounds. Meticulous hemostasis was obtained throughout the wound with electrocautery. Wounds were reapproximated with layers of 2-0 and 3-0 Vicryl. Skin was reapproximated with 3-0 Monocryl. Sterile dressing was applied. The patient was extubated and taken to recovery room in stable condition.
--- NOTE | 2018-10-25 17:03 | Anesthesia Evaluation Post Op ---
Date of Encounter: 10/25/18 Time of Encounter: 17:03 - Vital Signs Vital Signs: Last Vital Signs Temp 98.0 F 10/25/18 16:35 Pulse 55 10/25/18 16:45 Resp 16 10/25/18 16:45 BP 161/74 10/25/18 16:45 Pulse Ox 100 10/25/18 16:45 - Lungs Lungs: Clear Ascult./Percussion - Airway Airway: Non-obstructed - Cardiovascular Regular Rate - Mental Status Mental Status: Alert & Oriented, Answers Appropriately - Pain Pain Scale: 2 - Nausea Vomiting Nausea Vomiting: Not Present - Hydration Hydration: NPO, Yee catheter - Discharge PostOp Status: Transfer Patient to floor
[2018-10-25] MEDS ORDERED: Ondansetron 4 MG/2 ML VIAL IVP PRN (17:13)
[2018-10-25] MEDS ORDERED: OXYCODONE Oral CONC 10 MG/0.5 ML ORAL.SYG SL PRN ×2 (17:13)
[2018-10-25] MEDS ORDERED: Naloxone 0.4 MG/ML INJ IVP PRN (17:13)
[2018-10-25] MEDS ORDERED: *HR* Labetalol 20 MG/4 ML SYRINGE IVP PRN (17:13)
[2018-10-25] MEDS ORDERED: *HR* HYDROcodone/Acet 5/325 mg TABLET PO PRN (17:13)
[2018-10-25] MEDS ORDERED: 0.9 % Sodium Chloride 1,000 ML IVC SCH (17:13)
[2018-10-25] MEDS: *HR* Metoprolol 5 MG/5 ML VIAL IVP SCH ×2 (17:58→23:32)
[2018-10-25] MEDS: *HR* Heparin 5,000 UNIT/ML VIAL SQ SCH (17:58)
[2018-10-25] MEDS ORDERED: Lisinopril 20 MG TABLET PO SCH (18:00)
[2018-10-25] MEDS ORDERED: Garlic [Odor Free Garlic] 100 MG PO SCH (18:00)
[2018-10-25] MEDS: Acetaminophen 325 MG TABLET PO PRN (18:24)
[2018-10-26] MEDS: *HR* Heparin 5,000 UNIT/ML VIAL SQ SCH (04:59)
[2018-10-26] MEDS: *HR* Metoprolol 5 MG/5 ML VIAL IVP SCH (04:59)
[2018-10-26] MEDS ORDERED: *HR* Heparin 5,000 UNIT/ML VIAL SQ SCH (06:00)
[2018-10-26 06:53] LABS: Basophils % 0.2 %; Hematocrit 38.3 % (37.5-50.1); Hemoglobin 12.2 g/dL (12.9-16.9); Immature Granulocytes % 0.8 % (0-4); Lymphocytes # 1.3 K/mcL (0.6-4.6); Lymphocytes % 11.4 %; Mean Corpuscular HGB Conc 31.9 g/dL (31.6-35.5); Mean Corpuscular Hemoglobin 29.9 pg (28.0-33.3); Mean Corpuscular Volume 93.9 fL (83.0-100.0); Mean Platelet Volume 10.5 fL (9.4-12.4); Monocytes % 8.6 %; Neutrophils # 8.8 K/mcL (1.6-8.9); Platelet Count 100 K/mcL (140-400); Red Blood Count 4.08 M/mcL (4.19-5.50); Red Cell Distribution Width 13.7 % (11.5-14.5)
--- NOTE | 2018-10-26 06:59 | Discharge Summary ---
Orders not resulted at time of discharge: Pending orders 10/24/18 16:47 Red Blood Cells [BBK] Routine 10/25/18 15:23 Surgical Pathology [PTH] Routine 10/26/18 06:40 Basic Metabolic Panel AM 0400 Date of Encounter: 10/26/18 Time of Encounter: 07:50 - Discharge Diagnosis (1) Atherosclerosis of [place] arteries of right leg with ulceration of other part of foot Priority: Primary Status: Acute Comments: The patient is postoperative day #1 after a right femoral to popliteal artery bypass graft and endarterectomy for peripheral vascular disease with rest pain and a nonhealing ulcer of the right fifth digit. (2) CAD (coronary artery disease) Priority: Secondary Status: Chronic Qualifiers: Coronary Disease-Associated Artery/Lesion type: [place] artery [place] vs. transplanted heart: [place] heart Associated angina: without angina Qualified Code(s): I25.10 - Atherosclerotic heart disease of [place] coronary artery without angina pectoris (3) HTN (hypertension) Priority: Secondary Status: Chronic Qualifiers: Hypertension type: essential hypertension Qualified Code(s): I10 - Essenti al (primary) hypertension (4) HLD (hyperlipidemia) Priority: Secondary Status: Chronic Qualifiers: Hyperlipidemia type: mixed hyperlipidemia Qualified Code(s): E78.2 - Mixed hyperlipidemia (5) Tobacco abuse Priority: Secondary Status: Chronic - Hospital Course Hospital course: Mr. Arnold is a 53 year old male - Time Spent with Patient Total time spent providing and/or coordinating discharge services: - Discharge Medications Prescriptions: New Acetaminophen [Tylenol] 1,000 mg PO Q6HR PRN #90 tablet PRN Reason: POSTOPERATIVE PAIN Continued Clopidogrel Bisulfate [Plavix] 75 mg PO DAILY #30 tablet Aspirin [Lo-Dose Aspirin EC] 81 mg PO DAILY Atorvastatin [Lipitor] 40 mg PO QPM Garlic [Odor Free Garlic] 100 mg PO QPM Lisinopril [Zestril] 40 mg PO QPM Metoprolol [Lopressor] 25 mg PO BID Turmeric Root Extract [Turmeric Curcumin] 500 mg PO QPM Home Medications: Clopidogrel Bisulfate [Plavix] 75 mg PO DAILY #30 tablet 09/21/18 [Rx] Aspirin [Lo-Dose Aspirin EC] 81 mg PO DAILY 10/25/18 [History] Atorvastatin [Lipitor] 40 mg PO QPM 10/25/18 [History] Garlic [Odor Free Garlic] 100 mg PO QPM 10/25/18 [History] Lisinopril [Zestril] 40 mg PO QPM 10/25/18 [History] Metoprolol [Lopressor] 25 mg PO BID 10/25/18 [History] Turmeric Root Extract [Turmeric Curcumin] 500 mg PO QPM 10/25/18 [History] Acetaminophen [Tylenol] 1,000 mg PO Q6HR PRN #90 tablet 10/26/18 [Rx] Allergies/Adverse Reactions: Allergy/AdvReac Type Severity Reaction Status Date / Time clindamycin AdvReac Rash Verified 10/25/18 09:52 Date of admission: 10/25/18 17:11 Primary care physician: Panda Delatorre Exam Vital Signs, Last 4 Hours Temp Pulse Resp BP Pulse Ox 10/26/18 03:24 98.7 F 67 17 138/66 97 - Patient Status Disposition: Home, Self-Care Condition: Good Functional capacity at discharge: independent ambulation Overall status at discharge: patient is back to baseline - Discharge Instructions Instructions: Peripheral Vascular Disorders (DC), Chronic Hypertension (DC) Follow Up With: Tee Arana MD [Partnered Physician] - 11/22/18 9:20 am Vel Howard MD [Non-Partnered Physician] - 11/03/18 10:00 am (Dr. Delatorre is out of the office until November 22 so you will see Dr. Howard this time) Additional Instructions: May remove bandage and shower 10/28/2018. Wash wounds gently and pat to dry. Apply dry gauze to wound daily for 7 days. No tub baths or swimming until 11/28/2018. Call Dr. Arana at [phone] with questions or concerns. - Diet and Activity Activity: increase activity as tolerated Diet: advance to your usual diet
[2018-10-26 07:11] LABS: BUN/Creatinine Ratio 10 (6-26); Blood Urea Nitrogen 10 mg/dL (6-20); Calcium 9.3 mg/dL (8.6-10.3); Carbon Dioxide 24 mEq/L (23-29); Chloride 104 mEq/L (98-107); Glucose 133 mg/dL (70-105); Osmolality,Calculated 287 (280-300); Potassium 4.8 mEq/L (3.5-5.1); Sodium 138 mEq/L (136-145); eGFR For Non-African Americans > 60 (> 60)
[2018-10-26 07:36] VITALS: BP 134/64
[2018-10-26] MEDS: Acetaminophen 325 MG TABLET PO PRN (07:56)
[2018-10-26] MEDS ORDERED: Aspirin Enteric Coated 81 MG Tablet PO SCH (09:00)
== END 2018-10-26 10:11 | disposition home or self-care (01) | DRG 254 ==
LOC: SAMDAY 08:52 → 2NNU 17:11
PROVIDERS: ADMIT Surgery; ATTEND Surgery

== ENCOUNTER 2018-12-08 15:08 | Observation (INO) ==
[2018-12-08 16:09] LABS: Basophils % 0.5 %; Eosinophils % 0.1 %; Hematocrit 37.6 % (37.5-50.1); Hemoglobin 12.5 g/dL (12.9-16.9); Immature Granulocytes % 0.4 % (0-4); Lymphocytes % 12.1 %; Mean Corpuscular HGB Conc 33.2 g/dL (31.6-35.5); Mean Corpuscular Hemoglobin 30.1 pg (28.0-33.3); Mean Corpuscular Volume 90.6 fL (83.0-100.0); Mean Platelet Volume 9.8 fL (9.4-12.4); Monocytes # 0.4 K/mcL (0.0-1.3); Monocytes % 4.3 %; Neutrophils # 6.9 K/mcL (1.6-8.9); Platelet Count 238 K/mcL (140-400); Red Blood Count 4.15 M/mcL (4.19-5.50); Red Cell Distribution Width 13.7 % (11.5-14.5); Segmented Neutrophils % 82.6 %; White Blood Count 8.3 K/mcL (4.3-11.1)
[2018-12-08] MEDS ORDERED: Aspirin 325 MG TABLET PO ONE (16:15)
--- NOTE | 2018-12-08 16:15 | Emergency Department Note ---
Disposition Clinical Impression: Chest pain Qualifiers: Chest pain type: unspecified Qualified Code(s): R07.9 - Chest pain, unspecified Disposition: Admitted As Inpatient Condition: Fair Referrals: Panda Delatorre MD [Primary Care Provider] - Forms: ED Satisfaction Letter Time of Disposition: 16:48 General Adult HPI - General Chief complaint: ED Chest Pain Stated complaint: Chest pressure,nausea,sweats Time Seen by Provider: 12/08/18 15:18 Source: patient, family Limitations: no limitations Nursing Notes Reviewed: Yes Vital Signs Reviewed: Yes - History of Present Illness HPI Narrative: Presents with chest pressure which began this morning and significantly worsened around 1:00 or 1:30 and is constant but intermittently worse. It is not worse with exertion. No radiation. No pleuritic aspect. Does have associated dyspnea. No diaphoresis. Does have chronic right leg swelling but no worse than usual. There is no confusion. The old records have been reviewed. The patient was recently here and seen by vascular and the patient does have a history of a heart stent with myocardial infarction in 1999 and the pain today is similar but not identical. He also does have a history of peripheral v ascular disease Pain Scale: 6 - Related Data Home Medications Medication Instructions Recorded Confirmed Aspirin [Lo-Dose Aspirin EC] 81 mg PO DAILY 10/25/18 12/08/18 Atorvastatin [Lipitor] 40 mg PO QPM 10/25/18 12/08/18 Garlic [Odor Free Garlic] 100 mg PO QPM 10/25/18 12/08/18 Lisinopril [Zestril] 40 mg PO QPM 10/25/18 12/08/18 Metoprolol [Lopressor] 25 mg PO BID 10/25/18 12/08/18 Turmeric Root Extract [Turmeric 500 mg PO QPM 10/25/18 12/08/18 Curcumin] Previous Rx's Medication Instructions Recorded Clopidogrel Bisulfate [Plavix] 75 mg PO DAILY #30 tablet 09/21/18 OxyCODONE/APAP 5/325 [Percocet 1 each PO Q6HR PRN 5 Days #20 12/05/18 5/325 MG] tablet Allergies Allergy/AdvReac Type Severity Reaction Status Date / Time clindamycin AdvReac Rash Verified 12/08/18 15:14 All systems ED: reviewed and negative except as stated. Past Medical History - Past Medical History Medical history: Reports: coronary artery disease, hyperlipidemia, hypertension, myocardial infarction Surgical history: Reports: other Psychiatric history: Reports: no psych history - Social History Smoking Status: Current every day smoker Smokeless Tobacco Status: No Alcohol use: Reports: occasionally Drug use: Reports: none Physical Exam CONSTITUTIONAL: Well-appearing; well-nourished; A&O X 3, in no apparent distress HEAD: Normocephalic; atraumatic EYES: PERRL, no scleral icterus NOSE: The nose is normal in appearance without rhinorrhea NECK: No JVD or distended neck veins RESP: Normal chest excursion with respiration; breath sounds clear and equal jacqueline aterally; no wheezes, rhonchi, or rales CARD: Regular rhythm, without murmurs, rub or gallop ABD: Non-distended; non-tender, soft, without rigidity, rebound or guarding,no pulsatile mass CHEST: No pain with palpation SKIN: Normal for age and race; warm and dry without diaphoresis ; no apparent lesions EXTREMITIES: Pulses are 2 plus and equal times 4 extremities, does have swelling right lower extremity with some minimal pretibial pitting edema but no erythema or signs of infection of the lower extremity - General Limitations: no limitations General appearance: alert, in no apparent distress Course Vital Signs Temperature 98.7 F 12/08/18 15:15 Pulse Rate 67 12/08/18 15:15 Respiratory Rate 15 12/08/18 15:15 Blood Pressure 178/87 12/08/18 15:15 O2 Sat by Pulse Oximetry 98 12/08/18 15:15 Temperature 98.7 F 12/08/18 15:15 Pulse Rate 73 12/08/18 16:29 Respiratory Rate 16 12/08/18 16:29 Blood Pressure 169/72 12/08/18 16:29 O2 Sat by Pulse Oximetry 97 12/08/18 16:29 Oxygen Delivery Oxygen Delivery Room Air Medical Decision Making - [facility] Narrative Medical decision making narrative: I did review the patient's EKG and there is evidence of ST elevation anteriorly as well as lateral T-wave inversion which was present on the previous EKG from December 04, 4 days ago. The patient's T-wave inversion in V5 and V6 is minimally more pronounced and the patient will be watched closely on the compliance monitor, troponin is pending. As the patient's pain started this morning with constant ischemia we should see an elevated troponin and if this is actually from ischemia/infarction. Case will be discussed further with cardiology. The patient does have very concerning presentation. A second EKG will be done at this time. Patient typically takes one aspirin a day but has not yet taken it today so I will give him aspirin here. 1614 I did review the repeat EKG done at 4:19 PM showing normal sinus rhythm with a rate of [address] elevation anteriorly and no change in the T-wave inversion anterior lateral and I did again compare this to the previous EKG and similar in appearance compared to previous EKG from today as well as the EKG f rom December 04 and troponin result is pending. The patient will be admitted. 1635 I did review the troponin result which is negative. I did speak with Dr. Schaefer who is the hospitalist and she will admit the patient. I will speak with cardiology to inform them of the patient's arrival and her symptoms 1648 I did speak with Dr. Olmedo from cardiology and informed him of the patient's pain and symptoms and past history and he is aware will consult. No further intervention at this time. 1651 - Medical Records Medical records reviewed: Yes I reviewed the patient's medical records. - Lab Data Lab results reviewed: Yes I reviewed the patient's lab results. Result diagrams: 12/08/18 15:24 12/08/18 15:24 Lab Results 12/08/18 12/08/18 12/08/18 Range/Units 15:24 15:24 15:24 WBC 8.3 (4.3-11.1) K/mcL RBC 4.15 L (4.19-5.50) M/mcL Hgb 12.5 L (12.9-16.9) g/dL Hct 37.6 (37.5-50.1) % MCV 90.6 (83.0-100.0) fL MCH 30.1 (28.0-33.3) pg MCHC 33.2 (31.6-35.5) g/dL RDW 13.7 (11.5-14.5) % Plt Count 238 (140-400) K/mcL MPV 9.8 (9.4-12.4) fL Immature Gran % 0.4 (0-4) % Seg Neutrophils % 82.6 % Lymphocytes % 12.1 % Monocytes % 4.3 % Eosinophils % 0.1 % Basophils % 0.5 % Neutrophils # 6.9 (1.6-8.9) K/mcL Lymphocytes # 1.0 (0.6-4.6) K/mcL Monocytes # 0.4 (0.0-1.3) K/mcL Eosinophils # 0.0 (0.0-0.6) K/mcL Basophils # 0.0 (0.0-0.2) K/mcL PT 10.3 (9.4-12.1) Seconds INR 0.9 APTT 31.0 (26.0-36.0) Seconds Sodium 137 (136-145) mEq/L Potassium 4.6 (3.5-5.1) mEq/L Chloride 105 (98-107) mEq/L Carbon Dioxide 21 L (23-29) mEq/L BUN 20 (6-20) mg/dL Creatinine 0.99 (0.70-1.30) mg/dL Est GFR ( Amer) > 60 (> 60) Est GFR (Non-Af Amer) > 60 (> 60) BUN/Creatinine Ratio 20 (6-26) Glucose 155 H (70-105) mg/dL Calculated Osmolality 290 (280-300) Calcium 10.1 (8.6-10.3) mg/dL Troponin I < 0.03 (< 0.04) ng/mL - Radiology Data Radiology results reviewed: Yes I reviewed the patient's radiology results.
[2018-12-08 16:19] LABS: INR 0.9; Prothrombin Time 10.3 Seconds (9.4-12.1)
[2018-12-08 16:33] LABS: BUN/Creatinine Ratio 20 (6-26); Blood Urea Nitrogen 20 mg/dL (6-20); Calcium 10.1 mg/dL (8.6-10.3); Carbon Dioxide 21 mEq/L (23-29); Chloride 105 mEq/L (98-107); Glucose 155 mg/dL (70-105); Osmolality,Calculated 290 (280-300); Potassium 4.6 mEq/L (3.5-5.1); Sodium 137 mEq/L (136-145); Troponin I < 0.03 ng/mL (< 0.04); eGFR For African Americans > 60 (> 60); eGFR For Non-African Americans > 60 (> 60)
[2018-12-08] MEDS ORDERED: *HR* OxyCODONE/APAP 5/325 TABLET PO PRN (16:56)
--- NOTE | 2018-12-08 17:03 | Internal Med History&Physical ---
Date of Encounter: 12/08/18 Time of Encounter: 17:03 Internal Medicine - H&P: HPI Chief complaint: N/V History of present illness: Mr. Arnold is a 53 year old male the patient medical history of coronary artery disease, myocardial function 19 years ago status post stent placement And history of a right femoral to popliteal artery bypass graft and endarterectomy for peripheral vascular disease with rest pain and a nonhealing ulcer of the right fifth digit who as per the ER signout presented with intermittent chest pressure was no alleviating factors or exacerbating factor, the ER staff stated that the patient has ST-T changes that is not change from prior exam several days ago, he was admitted for further evaluation and management and to rule out coronary artery syndrome. At bedside the patient stated that he presented to the ER with severe persistent nausea and vomiting since a.m. this morning associated with abdominal pain. The patient stated that he couldn't keep anything down even his medication including the aspirin that he was given in the ER, the patient stated that he has generalized abdominal pain, he denied diarrhea, constipation, blood per rectum. The patient stated that the vomiting initially and contained food content and later contained yellowish fluid. On physical exam the patient was sweating with generalized tenderness all over his abdomen. I requested a CT scan of the abdomen and pelvis stat, liver enzymes, eyelids and lipase. I started IV fluid with isotonic saline at 125 as well as Zofran, the patient was signed out the night team for further follow-up. Past Med Surg Social Fam HX - Past Medical History Medical history: coronary artery disease, hyperlipidemia, hypertension, myocardial infarction Psychiatric history: no psych history - Past Surgical History Surgical History: other Additional surgical history: Femoral artery bypass 10/29. one heart stent. one right leg stent. 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 Pre-Diabetes - Social History Smoking Status: Current every day smoker Smokeless Tobacco Status: No Alcohol use: occasionally Drug use: none - Family History Father Family Member Ethnicity: Non- Living Status: Hx Family Cardiac Disorders: Yes (PVD, CT) Hx Family Respiratory Disorders: No Hx Family Cancer: No Hx Family GI Disorders: No Hx Family Endocrine Disorder: Yes (Diabetes) Hx Family Neuromuscular Disorders: No Hx Family Neurologic Disorders: No Hx Family HEENT Disorders: No Hx Family Autoimmune Disorders: No Mother Family Member Ethnicity: Non- Living Status: Still Living Hx Family Cardiac Disorders: Yes (HTN, Stroke in 1986) Hx Family Respiratory Disorders: No Hx Family Cancer: No Hx Family GI Disorders: No Hx Family Endocrine Disorder: Yes (Diabetes) Hx Family Neuromuscular Disorders: No Hx Family Neurologic Disorders: No Hx Family HEENT Disorders: No Hx Family Autoimmune Disorders: No Brother Family Member Ethnicity: Non- Living Status: Still Living Hx Family Cardiac Disorders: No Hx Family Respiratory Disorders: No Hx Family Cancer: No Hx Family Endocrine Disorder: Yes (Diabetes) Hx Family Neuromuscular Disorders: No Hx Family Neurologic Disorders: No Hx Family HEENT Disorders: No Hx Family Autoimmune Disorders: No Sister Family Member Ethnicity: Non- Living Status: Still Living Hx Family Cardiac Disorders: No Hx Family Respiratory Disorders: No Hx Family Cancer: No Hx Family GI Disorders: No Hx Family Endocrine Disorder: Yes (Diabetic) Hx Family Neuromuscular Disorders: No Hx Family Neurologic Disorders: No Hx Family HEENT Disorders: No Hx Family Autoimmune Disorders: No Internal Medicine - H&P: Meds Clopidogrel Bisulfate [Plavix] 75 mg PO DAILY #30 tablet 09/21/18 [Rx] Atorvastatin [Lipitor] 40 mg PO QAM 10/25/18 [History] Garlic [Odor Free Garlic] 200 mg PO BID 10/25/18 [History] Lisinopril [Zestril] 40 mg PO QPM 10/25/18 [History] Turmeric Root Extract [Turmeric Curcumin] 500 mg PO BID 10/25/18 [History] Nicotine Gum [Nicorette gum] 2 mg BC Q2H PRN 12/10/18 [History] Acetaminophen [Tylenol] 650 mg PO Q6HR PRN tablet 12/11/18 [Rx] Aspirin Enteric Coated [Aspirin EC] 81 mg PO DAILY #30 tablet.dr 12/11/18 [Rx] Carvedilol [Coreg] 3.125 mg PO BIDWM #30 tablet 12/11/18 [Rx] Isosorbide MONOnitrate (24 HR) [Imdur] 60 mg PO DAILY #60 tab.er.24h 12/11/18 [Rx] Allergy/AdvReac Type Severity Reaction Status Date / Time clindamycin AdvReac Rash Verified 12/10/18 14:54 All Systems PM: A 10-system review of systems was performed and is negative for pertinent findings except as documented above in the HPI. - Constitutional Vitals: Temp Pulse Resp BP Pulse Ox 98.7 F 69 20 186/67 98 12/08/18 15:15 12/08/18 16:55 12/08/18 16:55 12/08/18 16:55 12/08/18 16:55 General appearance: Present: A&O X 3 Exam: ` - Head Head exam: Present: atraumatic, normocephalic - Neck Neck exam general surgery: Present: supple, trachea midline. Absent: lymphadenopathy - Respiratory Respiratory exam: Present: CTAB. Absent: accessory muscle use, rales, rhonchi, wheezes - Cardiovascular Cardiovascular exam: Present: RRR, +S1, +S2. Absent: diastolic murmur, gallop, rubs, systolic murmur - GI/Abdominal GI/Abdominal exam: Present: normal bowel sounds, soft, tenderness, no peritoneal signs. Absent: distended - Extremities Exam Extremities exam: Present: pedal edema, warm, radial pulses palpable and symmetrical. Absent: calf tenderness, cyanotic Additional comments: lower extremities edema more on the right side Internal Med - H&P Results - Labs CBC & Chem 7: 12/10/18 00:40 12/10/18 00:40 Labs: Short CBC 12/08/18 Range/Units 15:24 WBC 8.3 (4.3-11.1) K/mcL Hgb 12.5 L (12.9-16.9) g/dL Hct 37.6 (37.5-50.1) % Plt Count 238 (140-400) K/mcL Neutrophils # 6.9 (1.6-8.9) K/mcL BMP 12/08/18 15:24 Sodium 137 Potassium 4.6 Chloride 105 Carbon Dioxide 21 L BUN 20 Creatinine 0.99 Glucose 155 H Calcium 10.1 Cardiac Enzymes 12/08/18 Range/Units 15:24 Troponin I < 0.03 (< 0.04) ng/mL - Impressions ITS Impressions Chest X-Ray 12/08/18 15:19 IMPRESSION: No radiographic evidence of acute cardiopulmonary disease. D/ / James Crowe / James Crowe Interpreting Provider: James Crowe - Assessment and Plan (1) Nausea and vomiting Status: Resolved Assessment and plan: Persistent N/V DD *Gastroenteritis *Gastritis *PUD *Pancreatitis *Cholecystitis *Diverticulitis *UTI PLAN: - NPO apart from meds - IVF - Urine C+S - CBCD, BMP in AM - CT scan of the abdomen - Zofran (ondansetron) PRN - DVT prophylaxis Qualifiers: Vomiting type: unspecified Vomiting Intractability: unspecified Qualified Code(s): R11.2 - Nausea with vomiting, unspecified (2) Chest pain Status: Acute Assessment and plan: the patient is presented with a pressure like chest pain, he denies shortness of breath, diaphoresis. EKG revealed no significant St-T changes from his prior EKG, case was discussed with cardiology by the ER physician and they will see the patient in consult, we will trend his cardiac enzymes and repeat EKG in a.m. Qualifiers: Chest pain type: chest pain due to myocardial ischemia Ischemic chest pain type: stable angina pectoris Qualified Code(s): I20.8 - Other forms of angina pectoris (3) HTN (hypertension) Status: Chronic Assessment and plan: we'll start the patient on when necessary IV antihypertensive, for systolic blood pressure 108 and this persisted about 100. Qualifiers: Hypertension type: essential hypertension Qualified Code(s): I10 - Essential (primary) hypertension (4) HLD (hyperlipidemia) Status: Chronic Assessment and plan: we will continue home statin when he is able to take by mouth and obtain fasting lipid profile in a.m. Qualifiers: Hyperlipidemia type: mixed hyperlipidemia Qualified Code(s): E78.2 - Mixed hyperlipidemia (5) Prediabetes Status: Chronic Assessment and plan: we will obtain hemoglobin A1c (6) Tobacco abuse Status: Chronic (7) CAD (coronary artery disease) Status: Chronic Assessment and plan: we'll continue home medication Qualifiers: Coronary Disease-Associated Artery/Lesion type: [place] artery [place] vs. transplanted heart: [place] heart Associated angina: with other forms of angina Qualified Code(s): I25.118 - Atherosclerotic heart disease of [place] coronary artery with other forms of angina pectoris (8) Atherosclerosis of [place] arteries of right leg with ulceration of other part of foot Status: Acute Assessment and plan: The patient has history of a right femoral to popliteal artery bypass graft and endarterectomy for peripheral vascular disease with rest pain and a nonhealing ulcer of the right fifth digit. - Time Spent With Patient Total time spent is greater than 50% in coordination of care (as documented) at patient's floor/unit and/or counseling patient:
[2018-12-08] MEDS ORDERED: Ondansetron 4 MG/2 ML VIAL IVP PRN (18:11)
[2018-12-08] MEDS ORDERED: *HR* HYDROcodone/Acet 5/325 mg TABLET PO PRN (18:11)
[2018-12-08] MEDS ORDERED: Acetaminophen 325 MG TABLET PO PRN (18:11)
[2018-12-08] MEDS ORDERED: Naloxone 0.4 MG/ML INJ IVP PRN (18:11)
[2018-12-08 19:06] LABS: Troponin I < 0.03 ng/mL (< 0.04)
[2018-12-08] MEDS: Ondansetron 4 MG/2 ML VIAL IVP PRN (20:29)
[2018-12-08] MEDS: 0.9 % Sodium Chloride 1,000 ML IVC SCH (20:30)
[2018-12-08 20:31] LABS: Alanine Aminotransferase 15 Units/L (7-52); Albumin 4.5 g/dL (3.5-5.7); Albumin/Globulin Ratio 1.8 (1.1-2.2); Alkaline Phosphatase 74 Units/L (34-104); Amylase 25 Units/L (29-103); Aspartate Amino Transferase 15 Units/L (13-39); BUN/Creatinine Ratio 21 (6-26); Bilirubin,Direct 0.1 mg/dL (0.0-0.2); Bilirubin,Indirect 0.6 mg/dL (0.0-1.2); Bilirubin,Total 0.7 mg/dL (0.3-1.0); Blood Urea Nitrogen 19 mg/dL (6-20); Calcium 9.7 mg/dL (8.6-10.3); Carbon Dioxide 19 mEq/L (23-29); Chloride 104 mEq/L (98-107); Globulin 2.5 g/dL (2.4-3.5); Glucose 156 mg/dL (70-105); Lipase 18 Units/L (11-82); Osmolality,Calculated 289 (280-300); Potassium 4.8 mEq/L (3.5-5.1); Sodium 137 mEq/L (136-145); eGFR For African Americans > 60 (> 60); eGFR For Non-African Americans > 60 (> 60)
[2018-12-08] MEDS: (Turmeric Root Extract [Turmeric Curcumin] 500 MG) PO SCH (22:23)
[2018-12-08] MEDS ORDERED: Pantoprazole 40 MG VIAL IVP ONE (22:51)
[2018-12-09 00:46] LABS: Basophils % 0.1 %; Hematocrit 33.9 % (37.5-50.1); Hemoglobin 11.3 g/dL (12.9-16.9); Immature Granulocytes % 0.6 % (0-4); Lymphocytes # 0.9 K/mcL (0.6-4.6); Lymphocytes % 12.1 %; Mean Corpuscular HGB Conc 33.3 g/dL (31.6-35.5); Mean Corpuscular Hemoglobin 29.7 pg (28.0-33.3); Mean Platelet Volume 9.9 fL (9.4-12.4); Monocytes # 0.4 K/mcL (0.0-1.3); Monocytes % 5.2 %; Neutrophils # 5.8 K/mcL (1.6-8.9); Platelet Count 212 K/mcL (140-400); Red Blood Count 3.81 M/mcL (4.19-5.50); Red Cell Distribution Width 13.8 % (11.5-14.5); White Blood Count 7.1 K/mcL (4.3-11.1)
[2018-12-09 00:53] LABS: Prothrombin Time 11.5 Seconds (9.4-12.1)
[2018-12-09] MEDS: Ondansetron 4 MG/2 ML VIAL IVP PRN ×3 (00:59→19:49)
[2018-12-09 01:07] LABS: Alanine Aminotransferase 15 Units/L (7-52); Albumin 4.1 g/dL (3.5-5.7); Albumin/Globulin Ratio 1.6 (1.1-2.2); Alkaline Phosphatase 60 Units/L (34-104); Aspartate Amino Transferase 13 Units/L (13-39); BUN/Creatinine Ratio 20 (6-26); Bilirubin,Total 0.6 mg/dL (0.3-1.0); Blood Urea Nitrogen 18 mg/dL (6-20); Calcium 9.3 mg/dL (8.6-10.3); Carbon Dioxide 20 mEq/L (23-29); Chloride 106 mEq/L (98-107); Chol/HDL Ratio 3.5 (0-4.9); Cholesterol 163 mg/dL (< 200); Globulin 2.6 g/dL (2.4-3.5); Glucose 143 mg/dL (70-105); HDL Cholesterol 47 mg/dL (40-59); LDL Cholesterol,Calculated 86 mg/dL (0-99); Magnesium 1.5 mg/dL (1.6-2.6); Osmolality,Calculated 290 (280-300); Phosphorous 3.4 mg/dL (2.7-4.5); Potassium 4.2 mEq/L (3.5-5.1); Sodium 138 mEq/L (136-145); Total Protein 6.7 g/dL (6.4-8.9); Triglycerides 151 mg/dL (< 150); eGFR For African Americans > 60 (> 60); eGFR For Non-African Americans > 60 (> 60)
[2018-12-09] MEDS: Lisinopril 20 MG TABLET PO SCH ×2 (01:22→16:51)
[2018-12-09] MEDS: 0.9 % Sodium Chloride 1,000 ML IVC SCH ×3 (04:18→19:51)
--- NOTE | 2018-12-09 05:39 | Electrocardiograph Report ---
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
[2018-12-09] MEDS: Pantoprazole 40 MG VIAL IVP SCH ×2 (05:51→16:51)
[2018-12-09] MEDS ORDERED: *HR* Promethazine 25 MG/ML VIAL IVP ONE (06:02)
[2018-12-09] MEDS ORDERED: 0.9 % Sodium Chloride 1,000 ML IVC ONE (09:50)
--- NOTE | 2018-12-09 09:57 | Internal Med Progress Note ---
Hospitalist Progress Note - Encounter Date of Encounter: 12/09/18 Time of Encounter: 08:30 - Subjective Interval History: Patient continues to have nausea. Denies any chest pain or abdominal pain at this time. He reports that he has not been able to pass any urine for the past couple of days. He does not have any urge to pass urine either. No flank pain. No shortness of breath. - Exam Vitals: Temp Pulse Resp BP Pulse Ox 98.8 F 60 15 156/81 97 12/09/18 07:08 12/09/18 07:08 12/09/18 07:08 12/09/18 07:08 12/09/18 07:08 Exam: General: Patient is alert, mild distress, oriented x 3 ENT: Mucous membranes dry Respiratory: Good respiratory effort. Normal breath sounds. No wheezing or crackles. Cardiovascular: Regular rate and rhythm. s1 and s2 normal No clicks, rubs, gallops, or murmurs. No pedal edema Abdomen: Abdomen is soft, nontender. Bowel sounds are present Musculoskeletal: Spontaneously moving all extremities Skin: warm, dry, intact. Neuro: Alert oriented x 3 normal cranial nerves, no focal deficits - Assessment and Plan (1) Nausea and vomiting Current Visit: Yes Status: Acute (2) Chest pain Current Visit: Yes Status: Acute (3) HTN (hypertension) Current Visit: Yes Status: Chronic (4) HLD (hyperlipidemia) Current Visit: Yes Status: Chronic (5) Prediabetes Current Visit: Yes Status: Chronic (6) Tobacco abuse Current Visit: Yes Status: Chronic (7) Atherosclerosis of [place] arteries of right leg with ulceration of other part of foot Current Visit: Yes Status: Acute (8) CAD (coronary artery disease) Current Visit: Yes Status: Chronic DVT Prophylaxis: With SCDs - Summary of Assessment and Plan Summary of Assessment and Plan: Intractable nausea with vomiting: Patient continues to be nauseated. Continue symptomatic treatment. Start patient on clears if his nausea improves through the day. Chest pain: Denies any chest pain at this time. Will obtain stress test tomorrow after his nausea improves. Also obtain 2-D echocardiogram. Troponins have been negative. Prediabetes: Will place patient on diabetic diet when he is able to eat. Monitor blood sugars closely. Essential hypertension: Monitor blood pressure. Continue Lopressor and lisinopril. Blood pressure is elevated this morning. We will monitor through the day and adjust antihypertensive regimen accordingly. Hyperlipidemia: Continue Lipitor - Time Spent with Patient Total time spent is greater than 50% in coordination of care (as documented) at patient's floor/unit and/or counseling patient: Internal Medicine: Result - Labs CBC & Chem 7: 12/09/18 00:18 12/09/18 00:18 Labs: Short CBC 12/08/18 12/09/18 Range/Units 15:24 00:18 WBC 8.3 7.1 (4.3-11.1) K/mcL Hgb 12.5 L 11.3 L (12.9-16.9) g/dL Hct 37.6 33.9 L (37.5-50.1) % Plt Count 238 212 (140-400) K/mcL Neutrophils # 6.9 5.8 (1.6-8.9) K/mcL BMP 12/08/18 12/08/18 12/09/18 15:24 18:32 00:18 Sodium 137 137 138 Potassium 4.6 4.8 4.2 Chloride 105 104 106 Carbon Dioxide 21 L 19 L 20 L BUN 20 19 18 Creatinine 0.99 0.92 0.91 Glucose 155 H 156 H 143 H Calcium 10.1 9.7 9.3 Cardiac Enzymes 12/08/18 12/08/18 12/09/18 Range/Units 15:24 18:32 00:18 Troponin I < 0.03 < 0.03 < 0.03 (< 0.04) ng/mL 12/09/18 Range/Units 07:03 Troponin I < 0.03 (< 0.04) ng/mL Liver Function 12/08/18 12/09/18 Range/Units 18:32 00:18 Total Bilirubin 0.7 0.6 (0.3-1.0) mg/dL Direct Bilirubin 0.1 (0.0-0.2) mg/dL AST 15 13 (13-39) Units/L ALT 15 15 (7-52) Units/L Alkaline Phosphatase 74 60 (34-104) Units/L Albumin 4.5 4.1 (3.5-5.7) g/dL - ABG Interpretation ABG results: PT/INR, D-dimer PT 11.5 Seconds (9.4-12.1) 12/09/18 00:18 - Impressions Impressions Chest X-Ray 12/08/18 15:19 IMPRESSION: No radiographic evidence of acute cardiopulmonary disease. D/ / James Crowe Interpreting Provider: James Crowe Abdomen/Pelvis CT 12/08/18 18:57 IMPRESSION: 1. No CT evidence of an acute intra-abdominal or intrapelvic process. 2. Small hiatal hernia. 3. Coronary artery disease and peripheral vascular disease evident. D/ / James Crowe / James Crowe Interpreting Provider: James Crowe Consult Discharge Plan - Plan Referrals: Panda Delatorre MD [Primary Care Provider] - ____ (1) Nausea and vomiting Qualifiers: Vomiting type: unspecified Vomiting Intractability: unspecified Qualified Code(s): R11.2 - Nausea with vomiting, unspecified (2) Chest pain Qualifiers: Chest pain type: unspecified Qualified Code(s): R07.9 - Chest pain, unspecified (3) HTN (hypertension) Qualifiers: Hypertension type: essential hypertension Qualified Code(s): I10 - Essential (primary) hypertension (4) HLD (hyperlipidemia) Qualifiers: Hyperlipidemia type: mixed hyperlipidemia Qualified Code(s): E78.2 - Mixed hyperlipidemia (8) CAD (coronary artery disease) Qualifiers: Coronary Disease-Associated Artery/Lesion type: [place] artery [place] vs. transplanted heart: [place] heart Associated angina: without angina Qualified Code(s): I25.10 - Atherosclerotic heart disease of [place] coronary artery without angina pectoris
--- NOTE | 2018-12-09 10:09 | Event Note ---
Date of Encounter: 12/09/18 Time of Encounter: 10:05 - Cardiology Event Note Discussed with primary service. Hx CAD with stent 2002. Trops negative x 4. Will proceed with echo and non exercise nuclear stress test. Please consult with any abnormal findings. Discussed with Dr. Guzman.
[2018-12-09 10:27] LABS: Bilirubin,Urine Negative (Negative); Blood,Urine Negative (Negative); Clarity,Urine Clear (Clear); Color,Urine Yellow (Yellow); Glucose,Urine (UA) Normal (Normal); Ketones,Urine Negative (Negative); Leukocyte Esterase,Urine Negative (Negative); Nitrite,Urine Negative (Negative); PH,Urine 5.5 pH Units (5.0-8.0); Protein,Urine Negative (Neg-Trace); Specific Gravity,Urine 1.018 (1.010-1.025); Urobilinogen,Urine Normal (Normal)
[2018-12-09] MEDS ORDERED: Perflutren Lipid Microsphere 1.3 ML in 0.9 % Sodium Chloride 8.7 ML IVP ONE (13:41)
[2018-12-09] MEDS: *HR* Promethazine 25 MG/ML VIAL IVP PRN ×2 (14:10→21:53)
[2018-12-09] MEDS: (Turmeric Root Extract [Turmeric Curcumin] 500 MG) PO SCH (16:45)
[2018-12-09] MEDS: Aspirin Enteric Coated 81 MG Tablet PO SCH (16:50)
[2018-12-10 01:22] LABS: Basophils % 0.4 %; Eosinophils % 0.3 %; Hematocrit 32.3 % (37.5-50.1); Hemoglobin 10.5 g/dL (12.9-16.9); Immature Granulocytes % 0.3 % (0-4); Lymphocytes # 1.2 K/mcL (0.6-4.6); Lymphocytes % 17.7 %; Mean Corpuscular HGB Conc 32.5 g/dL (31.6-35.5); Mean Corpuscular Hemoglobin 29.2 pg (28.0-33.3); Mean Corpuscular Volume 89.7 fL (83.0-100.0); Mean Platelet Volume 9.7 fL (9.4-12.4); Monocytes # 0.6 K/mcL (0.0-1.3); Monocytes % 8.2 %; Neutrophils # 4.9 K/mcL (1.6-8.9); Platelet Count 192 K/mcL (140-400); Red Cell Distribution Width 13.7 % (11.5-14.5); Segmented Neutrophils % 73.1 %; White Blood Count 6.7 K/mcL (4.3-11.1)
[2018-12-10 01:42] LABS: BUN/Creatinine Ratio 15 (6-26); Blood Urea Nitrogen 17 mg/dL (6-20); Calcium 8.6 mg/dL (8.6-10.3); Carbon Dioxide 21 mEq/L (23-29); Chloride 109 mEq/L (98-107); Glucose 144 mg/dL (70-105); Osmolality,Calculated 290 (280-300); Potassium 4.1 mEq/L (3.5-5.1); Sodium 138 mEq/L (136-145); eGFR For African Americans > 60 (> 60); eGFR For Non-African Americans > 60 (> 60)
[2018-12-10] MEDS: Ondansetron 4 MG/2 ML VIAL IVP PRN ×2 (02:04→10:20)
[2018-12-10] MEDS: 0.9 % Sodium Chloride 1,000 ML IVC SCH ×2 (05:09→17:18)
[2018-12-10] MEDS: Pantoprazole 40 MG VIAL IVP SCH ×2 (05:10→17:07)
[2018-12-10] MEDS: *HR* Promethazine 25 MG/ML VIAL IVP PRN (05:10)
[2018-12-10] MEDS ORDERED: Regadenoson 0.4 MG/5 ML SYRINGE IVP ONE (07:07)
[2018-12-10 11:02] LABS: Estimated Average Glucose 131 mg/dl
[2018-12-10] MEDS: Aspirin Enteric Coated 81 MG Tablet PO SCH (12:06)
--- NOTE | 2018-12-10 14:07 | Cardiology Consult Note ---
Date of Encounter: 12/10/18 Time of Encounter: 14:06 Assessment and Plan (1) Abnormal nuclear stress test Current Visit: Yes Status: Acute Large area of myocardium appears infarcted, with no definite ischemia on myocardial perfusion imaging ; however patient still having intermittent chest pain, suggesting possible viability. For this reason, a viability study might be helpful. Please obtain records from [place] and see what cardiac testing he has done in the past (2) Ischemic dilated cardiomyopathy Current Visit: Yes Status: Acute We would optimize guideline directed medical therapy by substituting Lopressor for carvedilol 3.125 mg twice a day and continue lisinopril 40 mg daily. (3) CAD (coronary artery disease) Current Visit: Yes Status: Chronic Continue aspirin 81 mg daily, Plavix 75 mg daily, beta coral, ALISHA inhibitor, high intensity statin. Risk factor modification including smoking cessation strongly advised, patient voiced understanding. Qualifiers: Coronary Disease-Associated Artery/Lesion type: [place] artery [place] vs. transplanted heart: [place] heart Associated angina: with other forms of angina Qualified Code(s): I25.118 - Atherosclerotic heart disease of [place] coronary artery with other forms of angina pectoris (4) Acute on chronic HFrEF (heart failure with reduced ejection fraction) Current Visit: Yes Status: Acute Start intravenous Lasix 20 mg daily. Strict inputs and outputs monitoring. Fluid restricted low-salt diet. Continue beta coral and ALISHA inhibitor. (5) HTN (hypertension) Current Visit: Yes Status: Chronic Systolic blood pressure ranging between 158 to 178mmHg. Stop Lopressor and commence Coreg 3.125 mg twice a day and titrate up as tolerated. Continue Imdur 30 mg daily and titrate up to 60 mg daily if blood pressure is still high. Continue lisinopril 40 mg daily Qualifiers: Hypertension type: essential hypertension Qualified Code(s): I10 - Essential (primary) hypertension (6) Atherosclerosis of [place] arteries of right leg with ulceration of other part of foot Current Visit: Yes Status: Acute (7) Carotid bruit Current Visit: Yes Status: Acute Obtain carotid USS duplex bilaterally Qualifiers: Laterality: right Qualified Code(s): R09.89 - Other specified symptoms and signs involving the circulatory and respiratory systems (8) Prediabetes Current Visit: Yes Status: Chronic Hemoglobin A1c of 6.2. Lifestyle modification to lose weight and healthy diet advised. Consider metformin if no contraindications (9) Tobacco abuse Current Visit: Yes Status: Chronic Urged to quit smoking Discussion w patient/family: The assessment and plan as outlined above was discussed with the patient and/or family members who expressed understanding and agreement. All questions were answered. Thank you for involving us in the care of your patient. Please call with any questions. History of Present Illness Consult date: 12/10/18 Requesting physician: Jake Culver Consult reason: Abnormal nuclear stress test Chief complaint: Chest discomfort History of present illness: Mr. Arnold is a 53 year old male Mr. Arnold is a 53 year old gentleman with history of hypertension, prediabetes, coronary artery disease, myocardial function over 15 years ago status post stent placement at [facility], but he has not followed up with the residence manager since then due to insurance issues. He also has history of peripheral vascular disease status post femoropopliteal bypass with claudication and nonhealing ulcer of the right fifth digit admitted for intermittent chest pressure which he described as nonexertional, 5 out of 10 in intensity, retrosternal, nonradiating, associated with diaphoresis and nausea. He also r eports shortness of breath on mild to moderate exertion. He denies orthopnea, cough, paroxysmal nocturnal dyspnea. No palpitations.. During this hospitalization, EKG shows sinus rhythm with anteroseptal Q waves, echocardiogram shows mild to moderate LV systolic dysfunction with global and segmental wall motion abnormalities, moderately dilated LV, and diastolic dysfunction. Pharmacological nuclear stress test completed with myocardial perfusion imaging demonstrating infarct involving apical, anteroseptal and inferoseptal segments. No ischemia. Past Med Surg Social Fam HX - Past Medical History Medical history: coronary artery disease, hyperlipidemia, hypertension, myocardial infarction Psychiatric history: no psych history - Past Surgical History Surgical History: other Additional surgical history: Femoral artery bypass 10/29. one heart stent. one right leg stent. 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 Pre-Diabetes - Social History Smoking Status: Current every day smoker Smokeless Tobacco Status: No Alcohol use: occasionally Drug use: none - Family History Father Family Member Ethnicity: Non- Living Status: Hx Family Cardiac Disorders: Yes (PVD, [place]) Hx Family Respiratory Disorders: No Hx Family Cancer: No Hx Family GI Disorders: No Hx Family Endocrine Disorder: Yes (Diabetes) Hx Family Neuromuscular Disorders: No Hx Family Neurologic Disorders: No Hx Family HEENT Disorders: No Hx Family Autoimmune Disorders: No Mother Family Member Ethnicity: Non- Living Status: Still Living Hx Family Cardiac Disorders: Yes (HTN, Stroke in 1986) Hx Family Respiratory Disorders: No Hx Family Cancer: No Hx Family GI Disorders: No Hx Family Endocrine Disorder: Yes (Diabetes) Hx Family Neuromuscular Disorders: No Hx Family Neurologic Disorders: No Hx Family HEENT Disorders: No Hx Family Autoimmune Disorders: No Brother Family Member Ethnicity: Non- Living Status: Still Living Hx Family Cardiac Disorders: No Hx Family Respiratory Disorders: No Hx Family Cancer: No Hx Family Endocrine Disorder: Yes (Diabetes) Hx Family Neuromuscular Disorders: No Hx Family Neurologic Disorders: No Hx Family HEENT Disorders: No Hx Family Autoimmune Disorders: No Sister Family Member Ethnicity: Non- Living Status: Still Living Hx Family Cardiac Disorders: No Hx Family Respiratory Disorders: No Hx Family Cancer: No Hx Family GI Disorders: No Hx Family Endocrine Disorder: Yes (Diabetic) Hx Family Neuromuscular Disorders: No Hx Family Neurologic Disorders: No Hx Family HEENT Disorders: No Hx Family Autoimmune Disorders: No Medications and Allergies Clopidogrel Bisulfate [Plavix] 75 mg PO DAILY #30 tablet 09/21/18 [Rx] Atorvastatin [Lipitor] 40 mg PO QAM 10/25/18 [History] Garlic [Odor Free Garlic] 200 mg PO BID 10/25/18 [History] Lisinopril [Zestril] 40 mg PO QPM 10/25/18 [History] Metoprolol [Lopressor] 25 mg PO BID 10/25/18 [History] Turmeric Root Extract [Turmeric Curcumin] 500 mg PO BID 10/25/18 [History] Aspirin [Adult Aspirin Regimen] 81 mg PO DAILY 12/10/18 [History] Nicotine Gum [Nicorette gum] 2 mg BC Q2H PRN 12/10/18 [History] Allergy/AdvReac Type Severity Reaction Status Date / Time clindamycin AdvReac Rash Verified 12/10/18 14:54 All Systems Review: The remainder of the systems were reviewed and are negative Physical Examination Vital Signs, Last 4 Hours Temp Pulse Resp BP Pulse Ox 12/10/18 11:24 178/88 12/10/18 11:18 98.7 F 59 18 195/86 96 General: Conversant HEENT: Atraumatic, Normocephaly Neck: Other (Mild carotid bruit on the right) Cardiac: Reg Rate and Rhythm, Normal S1 and S2, No Murmur Lungs: Normal Breath Sounds, Other (Mild bibasilar rales) Neuro: Alert and responsive, No focal deficits noted Abdomen: Soft Musculoskeletal: No Chest Wall Tenderness Extremities: Normal Pulses, Other (Mild bilateral pedal edema) Results 12/10/18 00:40 12/10/18 00:40 Lab Results 12/10/18 12/10/18 00:40 00:40 WBC 6.7 Hgb 10.5 L Hct 32.3 L Plt Count 192 Sodium 138 Potassium 4.1 Chloride 109 H Carbon Dioxide 21 L BUN 17 Creatinine 1.10 Glucose 144 H Calcium 8.6 - EKG Interpretation EKG results cardiology: personally reviewed (Sinus rhythm, old anteroseptal infarct) Consult Discharge Plan - Plan Referrals: Panda Delatorre MD [Primary Care Provider] - (Unable to schedule appointment. Please call Tuesday to schedule hospital follow up appointment for 7-10 days from date of discharge. )
--- NOTE | 2018-12-10 14:09 | Internal Med Progress Note ---
Hospitalist Progress Note - Encounter Date of Encounter: 12/10/18 Time of Encounter: 13:55 - Subjective Interval History: Patient's nausea and abdominal pain are improving. Tolerating oral diet. Was nothing by mouth overnight for a stress test this morning. Stress test completed and patient doing well. - Exam Vitals: Temp Pulse Resp BP Pulse Ox 98.7 F 59 18 178/88 96 12/10/18 11:18 12/10/18 11:18 12/10/18 11:18 12/10/18 11:24 12/10/18 11:18 Exam: General: Patient is alert, no acute distress, oriented x 3 Respiratory: Good respiratory effort. Normal breath sounds. No wheezing or crackles. Cardiovascular: Regular rate and rhythm. s1 and s2 normal No clicks, rubs, gallops, or murmurs. No pedal edema Abdomen: Abdomen is soft, nontender. Bowel sounds are present Musculoskeletal: Spontaneously moving all extremities Skin: warm, dry, intact. Neuro: Alert oriented x 3 normal cranial nerves, no focal deficits - Assessment and Plan (1) Nausea and vomiting Current Visit: Yes Status: Acute (2) Chest pain Current Visit: Yes Status: Acute (3) HTN (hypertension) Current Visit: Yes Status: Chronic (4) HLD (hyperlipidemia) Current Visit: Yes Status: Chronic (5) Prediabetes Current Visit: Yes Status: Chronic (6) Tobacco abuse Current Visit: Yes Status: Chronic (7) Atherosclerosis of [place] arteries of right leg with ulceration of other part of foot Current Visit: Yes Status: Acute (8) CAD (coronary artery disease) Current Visit: Yes Status: Chronic DVT Prophylaxis: With SCDs - Summary of Assessment and Plan Summary of Assessment and Plan: Intractable nausea with vomiting: Improved. Tolerating oral diet. Continue PPI and antiemetics as needed. Chest pain: Stress test completed today. No signs of ischemia. However patient has an echocardiogram done which showed an EF of 45% with global left ventricle systolic dysfunction. Consult with cardiology to evaluate this further. Prediabetes: Continue diabetic current cardiac diet. Monitor blood sugars. Essential hypertension: Blood pressure elevated today. Lopressor has been held for stress test. Will resume Lopressor and continue with Zestril. Patient also has hydralazine as needed for systolic blood pressure greater than 160. Hyperlipidemia: Continue Lipitor - Time Spent with Patient Total time spent is greater than 50% in coordination of care (as documented) at patient's floor/unit and/or counseling patient: Internal Medicine: Result - Labs CBC & Chem 7: 12/10/18 00:40 12/10/18 00:40 Labs: Short CBC 12/10/18 Range/Units 00:40 WBC 6.7 (4.3-11.1) K/mcL Hgb 10.5 L (12.9-16.9) g/dL Hct 32.3 L (37.5-50.1) % Plt Count 192 (140-400) K/mcL Neutrophils # 4.9 (1.6-8.9) K/mcL BMP 12/10/18 00:40 Sodium 138 Potassium 4.1 Chloride 109 H Carbon Dioxide 21 L BUN 17 Creatinine 1.10 Glucose 144 H Calcium 8.6 - ABG Interpretation ABG results: PT/INR, D-dimer PT 11.5 Seconds (9.4-12.1) 12/09/18 00:18 - Impressions Impressions Echocardiogram 12/09/18 10:05 Impressions: LVEF 45%. Global and segmental left ventricular systolic dysfunction. Moderately dilated left ventricle. Normal wall thickness. Normal right ventricular structure and function. No evidence of pulmonary hypertension. No significant valvular dysfunction. Left Ventricular Wall Motion: Rest Echo Findings The apical inferior, mid inferior, basal inferior, apical anterior, mid anterior, basal anterior, apical septal, mid inferior septal, basal inferior septal, apical lateral, mid anterior lateral, basal anterior lateral, mid anterior septal, mid inferior lateral, basal anterior septal and basal inferior lateral [place] were hypokinetic. The apex wall was akinetic. Findings: Study Quality * Technically adequate exam. ECG Findings * Normal sinus rhythm. Left Ventricle * LVEF 45%.Global and segmental left ventricular systolic dysfunction. * Moderately dilated left ventricle. * Normal wall thickness. * * Definity echo contrast was used. Right Ventricle * Normal right ventricular structure and function. Left Atrium * Mildly dilated left atrium. Right Atrium * Normal right atrial size. Aortic Valve * Trileaflet aortic valve. * No aortic regurgitation. * No aortic stenosis. * Mildly calcified aortic valve leaflets. Mitral Valve * Normal mitral valve structure. * No mitral regurgitation. * No mitral stenosis. Tricuspid Valve * Normal tricuspid valve structure. * Trace tricuspid regurgitation. * No tricuspid stenosis. * No evidence of pulmonary hypertension. Pulmonic Valve * No pulmonic regurgitation. Aorta * Normally sized aortic root. Pericardium * The pericardium appears normal. IVC * The IVC is not well evaluated. Pulmonary Artery * Normal visualized portions of the main pulmonary artery. Consult Discharge Plan - Plan Referrals: Panda Delatorre MD [Primary Care Provider] - (Unable to schedule appointment. Please call Tuesday to schedule hospital follow up appointment for 7-10 days from date of discharge. ) (1) Nausea and vomiting Qualifiers: Vomiting type: unspecified Vomiting Intractability: unspecified Qualified Code(s): R11.2 - Nausea with vomiting, unspecified (2) Chest pain Qualifiers: Chest pain type: unspecified Qualified Code(s): R07.9 - Chest pain, unspecified (3) HTN (hypertension) Qualifiers: Hypertension type: essential hypertension Qualified Code(s): I10 - Essential (primary) hypertension (4) HLD (hyperlipidemia) Qualifiers: Hyperlipidemia type: mixed hyperlipidemia Qualified Code(s): E78.2 - Mixed hyperlipidemia (8) CAD (coronary artery disease) Qualifiers: Coronary Disease-Associated Artery/Lesion type: [place] artery [place] vs. transplanted heart: [place] heart Associated angina: without angina Qualified Code(s): I25.10 - Atherosclerotic heart disease of [place] coronary artery without angina pectoris
[2018-12-10] MEDS ORDERED: Nitroglycerin 0.4 MG TAB.SUBL SL PRN (14:28)
[2018-12-10] MEDS ORDERED: Nitroglycerin 0.4 MG TAB.SUBL SL ONE (14:32)
[2018-12-10] MEDS: Isosorbide MONOnitrate (24 HR) 30 MG TAB.ER.24H PO SCH (14:45)
[2018-12-10] MEDS: Furosemide 20 MG/2 ML VIAL IVP SCH (17:06)
[2018-12-10] MEDS: (Turmeric Root Extract [Turmeric Curcumin] 500 MG) PO SCH (17:07)
[2018-12-10] MEDS: Lisinopril 20 MG TABLET PO SCH (17:07)
[2018-12-11] MEDS: Pantoprazole 40 MG VIAL IVP SCH (06:08)
[2018-12-11] MEDS: *HR* Promethazine 25 MG/ML VIAL IVP PRN (06:15)
--- NOTE | 2018-12-11 08:22 | Internal Med Progress Note ---
Hospitalist Progress Note - Encounter Date of Encounter: 12/11/18 Time of Encounter: 08:20 - Subjective Interval History: Patient seen and examined resting comfortably in bed. Patient BP remains elevated today. He remains on IV Lasix. He denies any further chest pain today and is eager to go home after he is cleared by cardiology. - Exam Vitals: Temp Pulse Resp BP Pulse Ox 98.6 F 56 20 177/74 97 12/11/18 07:04 12/11/18 07:04 12/11/18 07:04 12/11/18 07:04 12/11/18 07:04 Exam: General: Patient is alert, no acute distress, oriented x 3 Respiratory: Good respiratory effort. Normal breath sounds. No wheezing or crackles. Cardiovascular: Regular rate and rhythm. s1 and s2 normal No clicks, rubs, gallops, or murmurs. No pedal edema Abdomen: Abdomen is soft, nontender. Bowel sounds are present Musculoskeletal: Spontaneously moving all extremities Skin: warm, dry, intact. Neuro: Alert oriented x 3 normal cranial nerves, no focal deficits - Assessment and Plan (1) HTN (hypertension) Current Visit: Yes Status: Chronic Assessment and Plan: Cardiology following. BP 177/74 today. Stopped Lopressor and switched to Coreg 3.125 mg BID. Continue Imdur 30 mg daily and titrate up to 60 mg daily if blood pressure is still high. Continue lisinopril 40 mg daily (2) Abnormal nuclear stress test Current Visit: Yes Status: Acute Assessment and Plan: Large area of myocardium appears infarcted, with no definite ischemia on myocardial perfusion imaging; intermittent chest pain suggests possible viability. A viability study might be helpful per cardiology recommendations. Awaiting records from [place] to see what cardiac testing he has done in the past (3) Acute on chronic HFrEF (heart failure with reduced ejection fraction) Current Visit: Yes Status: Acute Assessment and Plan: Continue intravenous Lasix 20 mg daily. Strict inputs and outputs monitoring. Fluid restricted low-salt diet. Continue beta coral and ALISHA inhibitor. (4) Ischemic dilated cardiomyopathy Current Visit: Yes Status: Acute (5) CAD (coronary artery disease) Current Visit: Yes Status: Chronic Assessment and Plan: Continue aspirin 81 mg daily, Plavix 75 mg daily, beta coral, ALISHA inhibitor, high intensity statin. Risk factor modification including smoking cessation (6) Atherosclerosis of [place] arteries of right leg with ulceration of other part of foot Current Visit: Yes Status: Acute Assessment and Plan: The patient has history of a right femoral to popliteal artery bypass graft and endarterectomy for peripheral vascular disease with rest pain and a nonhealing ulcer of the right fifth digit. (7) Carotid bruit Current Visit: Yes Status: Acute Assessment and Plan: Obtain carotid USS duplex bilaterally (8) HLD (hyperlipidemia) Current Visit: Yes Status: Chronic Assessment and Plan: Continue home statin (9) Prediabetes Current Visit: Yes Status: Chronic Assessment and Plan: Hemoglobin A1c of 6.2. Lifestyle modification to lose weight and healthy diet advised. Consider metformin if no contraindications (10) Tobacco abuse Current Visit: Yes Status: Chronic Assessment and Plan: Tobacco cessation discussed (11) Nausea and vomiting Current Visit: Yes Status: Resolved - Time Spent with Patient Total time spent is greater than 50% in coordination of care (as documented) at patient's floor/unit and/or counseling patient: Internal Medicine: Result - Labs CBC & Chem 7: 12/10/18 00:40 12/10/18 00:40 Labs: Cardiac Enzymes 12/10/18 12/10/18 Range/Units 14:43 20:45 Troponin I < 0.03 < 0.03 (< 0.04) ng/mL - ABG Interpretation ABG results: PT/INR, D-dimer PT 11.5 Seconds (9.4-12.1) 12/09/18 00:18 Consult Discharge Plan - Plan Referrals: Panda Delatorre MD [Primary Care Provider] - (Unable to schedule appointment. Please call Tuesday to schedule hospital follow up appointment for 7-10 days from date of discharge. ) (1) HTN (hypertension) Qualifiers: Hypertension type: essential hypertension Qualified Code(s): I10 - Essential (primary) hypertension (5) CAD (coronary artery disease) Qualifiers: Coronary Disease-Associated Artery/Lesion type: [place] artery [place] vs. transplanted heart: [place] heart Associated angina: with other forms of angina Qualified Code(s): I25.118 - Atherosclerotic heart disease of [place] coronary artery with other forms of angina pectoris (7) Carotid bruit Qualifiers: Laterality: right Qualified Code(s): R09.89 - Other specified symptoms and signs involving the circulatory and respiratory systems (8) HLD (hyperlipidemia) Qualifiers: Hyperlipidemia type: mixed hyperlipidemia Qualified Code(s): E78.2 - Mixed hyperlipidemia (11) Nausea and vomiting Qualifiers: Vomiting type: unspecified Vomiting Intractability: unspecified Qualified Code(s): R11.2 - Nausea with vomiting, unspecified
[2018-12-11] MEDS: Furosemide 20 MG/2 ML VIAL IVP SCH (09:34)
[2018-12-11] MEDS: Isosorbide MONOnitrate (24 HR) 30 MG TAB.ER.24H PO SCH (09:34)
[2018-12-11] MEDS: Aspirin Enteric Coated 81 MG Tablet PO SCH (09:34)
--- NOTE | 2018-12-11 10:45 | Cardiology Progress Note ---
Date of Encounter: 12/11/18 Time of Encounter: 08:00 Assessment and Plan (1) Chest pain Current Visit: Yes Status: Acute Patient presented with typical chest pain symptoms, troponin negative x3. ECG is noted to have ST-T wave abnormalities; however unchanged from ECG at [place] 09/21/17. Chest pain free since admission. Describes hx of [place] ~15 years ago, s/p stent placement, pt states, "right side." Nuclear stress test completed this admission and was found to be abnormal--perfusion imaging positive for infarct--large, fixed perfusion defect severe in intensity in the apical segment, anteroseptal, inferoseptal segments. No evidence of ischemia, gated EF=39%, LV is dilated. TTE 12/09/18: LVEF 40-45%, moderately dilated LV, moderate LVDD, mildly dilated LA, normal RV, no significant valvular dysfunction. Recommend [facility] with possible PCI to further evaluate for ischemia, however patient declines and opts to start medical therapy with close outpatient follow- up. He is aware of risks. A Continue asa, statin, BB, ACEi, and nitrates. Will coordinate outpatient follow-up in 5-7 days. Qualifiers: Chest pain type: chest pain due to myocardial ischemia Ischemic chest pain type: stable angina pectoris Qualified Code(s): I20.8 - Other forms of angina pectoris (2) CHF (congestive heart failure) Current Visit: Yes Status: Chronic Patient describes NYHA class II-II symptoms. Reports worsening shortness of breath since October of this year. TTE shows LVEF 40-45%. Suspected ischemic etiology. No prior TTE. Has not followed with Cardiology since [place] ~15 years ago. As above, patient has declined inpatient LHC--will optimize medications. Continue coreg, ACEi, and nitrates. Goal SBP less than 130. Clinically appears euvolemic upon exam this AM. CHF teaching discussed including Na/fluid restricted diet. Will coordinate close outpatient follow-up with [facility] in 5-7 days. Qualifiers: Heart failure type: combined systolic and diastolic Heart failure chronicity: chronic Qualified Code(s): I50.42 - Chronic combined systolic (congestive) and diastolic (congestive) heart failure (3) CAD (coronary artery disease) Current Visit: No Status: Chronic Continue aspirin 81 mg daily, Plavix 75 mg daily, beta coral, ALISHA inhibitor, high intensity statin. Risk factor modification including smoking cessation strongly advised, patient voiced understanding. Qualifiers: Coronary Disease-Associated Artery/Lesion type: [place] artery [place] vs. transplanted heart: de[place] heart Associated angina: with other forms of angina Qualified Code(s): I25.118 - Atherosclerotic heart disease of [place] coronary artery with other forms of angina pectoris Discussion w patient/family: The assessment and plan as outlined above was discussed with the patient and/or family members who expressed understanding and agreement. All questions were answered. Thank you for involving us in the care of your patient. Please call with any questions. The patient will be discussed and reviewed with Dr. Kemp; changes to be made accordingly. Subjective Principal diagnosis: Chest pain Interval history: Seen and examined. No complaints upon exam today. Denies recurrent chest pain. Blood pressures remain elevated, however AM medications have yet to be administered upon time of exam. Objective Vital Signs, Last 4 Hours Temp Pulse Resp BP Pulse Ox 12/11/18 07:04 98.6 F 56 20 177/74 97 General: Conversant, No Apparent Distress HEENT: Atraumatic, Normocephaly, Mucus Membranes Moist Neck: No JVD, Normal carotid pulses Cardiac: Reg Rate and Rhythm, Normal S1 and S2, No Murmur Lungs: Normal Breath Sounds, No Wheeze, Rales, Rhonchi Neuro: Alert and responsive, No focal deficits noted Abdomen: Soft, Non-Tender Skin: No rashes noted on visualized skin Musculoskeletal: No Chest Wall Tenderness Extremities: No Clubbing, No Cyanosis, No Edema, Normal Pulses Results 12/10/18 00:40 12/10/18 00:40 Lab Results 12/10/18 12/10/18 14:43 20:45 Troponin I < 0.03 < 0.03 Active Medications Acetaminophen (Tylenol) 650 mg PO Q6HR PRN PRN Reason: Mild Pain/Fever Stop: 06/09/19 18:12 Last Admin: 12/10/18 23:46 Dose: 650 mg Documented by: Hydrocodone Bitart/Acetaminophen ([place] 5-325 Mg) 1 tab PO Q6HR PRN PRN Reason: Moderate Pain Stop: 06/09/19 18:12 Aspirin (Aspirin Ec) 81 mg PO DAILY DARYL Stop: 06/10/19 09:01 Last Admin: 12/11/18 09:34 Dose: 81 mg Documented by: Atorvastatin Calcium (Lipitor) 40 mg PO QPM [facility] Stop: 06/09/19 18:01 Last Admin: 12/10/18 17:06 Dose: 40 mg Documented by: Carvedilol (Coreg) 3.125 mg PO BIDWM [facility]; Protocol Stop: 06/11/19 15:09 Last Admin: 12/11/18 09:34 Dose: 3.125 mg Documented by: Clopidogrel Bisulfate (Plavix) 75 mg PO DAILY [facility] Stop: 06/10/19 09:01 Last Admin: 12/11/18 09:34 Dose: 75 mg Documented by: Furosemide (Lasix) 20 mg IVP DAILY [facility] Stop: 06/11/19 15:16 Last Admin: 12/11/18 09:34 Dose: 20 mg Documented by: Heparin Sodium (Porcine) (Heparin) 5,000 unit SQ Q8HCO [facility] Stop: 06/12/19 14:01 Hydralazine HCl (Hydralazine) 10 mg IVP Q6HR PRN PRN Reason: Hypertension Stop: 06/10/19 06:37 Last Admin: 12/10/18 14:46 Dose: 10 mg Documented by: Isosorbide Mononitrate (Imdur) 30 mg PO DAILY [facility] Stop: 06/11/19 14:31 Last Admin: 12/11/18 09:34 Dose: 30 mg Documented by: Lisinopril (Zestril) 40 mg PO QPM [facility] Stop: 06/09/19 18:01 Last Admin: 12/10/18 17:07 Dose: 40 mg Documented by: Naloxone HCl (Narcan) 0.4 mg IVP Q2MPRN PRN PRN Reason: SEE COMMENTS Stop: 06/09/19 18:12 Nitroglycerin (Nitroglycerin) 0.4 mg SL Q5MPRN PRN PRN Reason: chest pain Stop: 06/11/19 14:29 Ondansetron HCl (Zofran) 4 mg IVP Q6HR PRN; Protocol PRN Reason: Vomiting Stop: 06/09/19 19:01 Last Admin: 12/10/18 10:20 Dose: 4 mg Documented by: Oxycodone/Acetaminophen (Percocet 5/325) 1 each PO Q6HR PRN PRN Reason: postoperative pain Stop: 06/09/19 16:57 Pantoprazole Sodium (Protonix) 40 mg IVP Q12HR DARYL Stop: 06/10/19 06:01 Last Admin: 12/11/18 06:08 Dose: 40 mg Documented by: Pharmacy Profile Note (Patient Taking Own Medication) 1 each PO QPM DARY[facility] Stop: 06/09/19 18:01 Last Admin: 12/10/18 17:08 Dose: Not Given Documented by: Pharmacy Profile Note (Patient Taking Own Medication) 1 each PO QPM DARY[facility] Stop: 06/09/19 18:01 Last Admin: 12/10/18 17:07 Dose: Not Given Documented by: Promethazine HCl (Phenergan) 12.5 mg IVP Q6HR PRN PRN Reason: Nausea Stop: 06/10/19 12:41 Last Admin: 12/11/18 06:15 Dose: 12.5 mg Documented by: - Imaging and Cardiology Stress Test: report reviewed Echo: report reviewed Other Results: 12 hour tele: avg HR=57 SB. - EKG Interpretation EKG results cardiology: personally reviewed Consult Discharge Plan - Plan Referrals: Panda Delatorre MD [Primary Care Provider] - 12/18/18 1:15 pm ()
--- NOTE | 2018-12-11 12:01 | Discharge Summary ---
<[email or web address] - Last Filed: 12/11/18 12:16> Orders not resulted at time of discharge: Pending orders 12/08/18 16:15 ECG 12 lead ECG [ECG] Stat 12/09/18 06:00 ECG 12 lead ECG [ECG] AM 0600 12/09/18 10:05 NM deshawn perf SPECT multi [NM] Routine 12/10/18 14:23 ECG 12 lead ECG [ECG] Stat Date of Encounter: 12/11/18 Time of Encounter: 09:00 - Discharge Diagnosis (1) HTN (hypertension) Status: Chronic Qualifiers: Hypertension type: essential hypertension Qualified Code(s): I10 - Essential (primary) hypertension (2) HLD (hyperlipidemia) Status: Chronic Qualifiers: Hyperlipidemia type: mixed hyperlipidemia Qualified Code(s): E78.2 - Mixed hyperlipidemia (3) Prediabetes Status: Chronic (4) Tobacco abuse Status: Chronic (5) Atherosclerosis of [place] arteries of right leg with ulceration of other part of foot Status: Acute (6) CAD (coronary artery disease) Status: Chronic Qualifiers: Coronary Disease-Associated Artery/Lesion type: [place] artery [place] vs. transplanted heart: [place] heart Associated angina: with other forms of angina Qualified Code(s): I25.118 - Atherosclerotic heart disease of [place] coronary artery with other forms of angina pectoris (7) Nausea and vomiting Status: Resolved Qualifiers: Vomiting type: unspecified Vomiting Intractability: unspecified Qualified Code(s): R11.2 - Nausea with vomiting, unspecified (8) Ischemic dilated cardiomyopathy Status: Acute (9) Abnormal nuclear stress test Status: Acute (10) Acute on chronic HFrEF (heart failure with reduced ejection fraction) Status: Acute (11) Carotid bruit Status: Acute Qualifiers: Laterality: right Qualified Code(s): R09.89 - Other specified symptoms and signs involving the circulatory and respiratory systems Hospital course: Mr. Arnold is a 53 year old male Discharge discussed with: patient - Time Spent with Patient Total time spent providing and/or coordinating discharge services: Time spent: Less than 30 minutes (15 min) - Discharge Medications Prescriptions: New Aspirin Enteric Coated [Aspirin EC] 81 mg PO DAILY #30 tablet. Carvedilol [Coreg] 3.125 mg PO BIDWM #30 tablet Isosorbide MONOnitrate (24 HR) [Imdur] 60 mg PO DAILY #60 tab.er.24h Acetaminophen [Tylenol] 650 mg PO Q6HR PRN tablet PRN Reason: Mild Pain/Fever Continued Clopidogrel Bisulfate [Plavix] 75 mg PO DAILY #30 tablet Atorvastatin [Lipitor] 40 mg PO QAM Garlic [Odor Free Garlic] 200 mg PO BID Lisinopril [Zestril] 40 mg PO QPM Turmeric Root Extract [Turmeric Curcumin] 500 mg PO BID Nicotine Gum [Nicorette gum] 2 mg BC Q2H PRN PRN Reason: SMOKING CESSATION Discontinued Metoprolol [Lopressor] 25 mg PO BID Aspirin [Adult Aspirin Regimen] 81 mg PO DAILY Home Medications: Clopidogrel Bisulfate [Plavix] 75 mg PO DAILY #30 tablet 09/21/18 [Rx] Atorvastatin [Lipitor] 40 mg PO QAM 10/25/18 [History] Garlic [Odor Free Garlic] 200 mg PO BID 10/25/18 [History] Lisinopril [Zestril] 40 mg PO QPM 10/25/18 [History] Turmeric Root Extract [Turmeric Curcumin] 500 mg PO BID 10/25/18 [History] Nicotine Gum [Nicorette gum] 2 mg BC Q2H PRN 12/10/18 [History] Acetaminophen [Tylenol] 650 mg PO Q6HR PRN tablet 12/11/18 [Rx] Aspirin Enteric Coated [Aspirin EC] 81 mg PO DAILY #30 tablet. 12/11/18 [Rx] Carvedilol [Coreg] 3.125 mg PO BIDWM #30 tablet 12/11/18 [Rx] Isosorbide MONOnitrate (24 HR) [Imdur] 60 mg PO DAILY #60 tab.er.24h 12/11/18 [Rx] Allergies/Adverse Reactions: Allergy/AdvReac Type Severity Reaction Status Date / Time clindamycin AdvReac Rash Verified 12/10/18 14:54 Date of admission: 12/08/18 17:09 Primary care physician: Panda Delatorre Consults: 12/10/18 10:41 Consult to Cardiology [CONS] Routine Comment: Consulting Provider: Cardiology Fabby Reason for Consult: EF 45%; Chest pain Time Notified: 10:41 Call Completed: Yes 12/11/18 08:40 Consult to Nurse Navigator [CONS] Routine Comment: CHF - Constitutional Vitals: Temp Pulse Resp BP Pulse Ox 98.8 F 59 21 163/69 96 12/11/18 10:45 12/11/18 10:45 12/11/18 10:45 12/11/18 10:45 12/11/18 10:45 - Patient Status Disposition: Home, Self-Care Condition: Fair - Discharge Instructions Follow Up With: Panda Delatorre MD [Primary Care Provider] - 12/18/18 1:15 pm () - Attending Attestation I saw evaluated and examined this patient and my medical decision-making was reviewed with the Resident Physician, Koffi Wilkes. I agree with the documented findings, disposition and treatment plan as described except to any changes set forth below. We independently had [id number] contact with the patient. Patient with a history of coronary artery disease with remote stent who was hospitalized here with chest pain along with nausea and vomiting. He was initially kept nothing by mouth and treated for the nausea which has now resolved. He then underwent cardiac stress test which did not show any signs of ischemia. However his ejection fraction was 45% on echocardiogram. Cardiology was consulted to evaluate this further. Patient was recommended left heart catheterization. He did not want this done at this time. As such cardiology have adjusted his home medications and would follow up with him as outpatient for further management. Patient is chest pain-free today. He does have chronic hypertension which is poorly controlled. His antihypertensive medications have been adjusted here and he will be sent for new prescriptions for medications started here. <Koffi Wilkes - Last Filed: 12/11/18 12:57> - NOTES TO OUTPATIENT PROVIDER Notes to Outpatient Provider: Patient hospitalized for chest pain. Stress test and TTE demonstrated mild to moderate reduction in LV function, prior infarct, but no evidence of ischemia. Cardiology evaluated the patient and recommended LHC. Patient elected to perform LHC as an outpatient. Follow up with cardiology in 1 week. Encourage smoking cessation. Monitor blood pressure, ti trate meds as needed. Orders not resulted at time of discharge: Pending orders 12/08/18 16:15 ECG 12 lead ECG [ECG] Stat 12/09/18 06:00 ECG 12 lead ECG [ECG] AM 0600 12/09/18 10:05 NM deshawn perf SPECT multi [NM] Routine 12/10/18 14:23 ECG 12 lead ECG [ECG] Stat Date of Encounter: 12/11/18 - Discharge Diagnosis (1) Abnormal nuclear stress test Priority: Primary Status: Acute Assessment and Plan: Patient presented with complaints of chest pain. ECG abnormal, but unchanged to prior ECGs from outside facility from 2018. Stress test and TTE demonstrated mild to moderate reduction in LV function, prior infarct, but no evidence of ischemia. Given symptoms, history, poor risk factor modification and poor cardiology follow-up, cardiology discussed treatment options, including the importance of medical therapy +/- [facility]. Indications, risks, benefits, and alternatives to the procedure were reviewed with the patient but he declines procedure at this time, but states he will follow-up as an outpatient. Follow-up with cardiology in 1 week. (2) HTN (hypertension) Priority: Secondary Status: Chronic Assessment and Plan: Cardiology following. BP elevated today. Stopped Lopressor and switched to Coreg 3.125 mg BID. Titrate Imdur up to 60 mg daily if blood pressure is still high. Continue lisinopril 40 mg daily Qualifiers: Hypertension type: essential hypertension Qualified Code(s): I10 - Essential (primary) hypertension (3) Acute on chronic HFrEF (heart failure with reduced ejection fraction) Priority: Secondary Status: Acute Assessment and Plan: Discontinue intravenous Lasix 20 mg daily. Strict inputs and outputs monitoring. Fluid restricted low-salt diet. Continue beta coral and ALISHA inhibitor. (4) Ischemic dilated cardiomyopathy Priority: Secondary Status: Acute (5) CAD (coronary artery disease) Priority: Secondary Status: Chronic Assessment and Plan: Continue Aspirin 81 mg daily, Plavix 75 mg daily, beta coral, ALISHA inhibitor, high intensity statin. Risk factor modification including smoking cessation Qualifiers: Coronary Disease-Associated Artery/Lesion type: [place] artery [place] vs. transplanted heart: [place] heart Associated angina: with other forms of angina Qualified Code(s): I25.118 - Atherosclerotic heart disease of [place] coronary artery with other forms of angina pectoris (6) Atherosclerosis of [place] arteries of right leg with ulceration of other part of foot Priority: Secondary Status: Acute Assessment and Plan: The patient has history of a right femoral to popliteal artery bypass graft and endarterectomy for peripheral vascular disease with rest pain and a nonhealing ulcer of the right fifth digit. (7) Carotid bruit Priority: Secondary Status: Acute Assessment and Plan: Carotid US duplex shows nonstenotic plaque bilaterally Qualifiers: Laterality: right Qualified Code(s): R09.89 - Other specified symptoms and signs involving the circulatory and respiratory systems (8) HLD (hyperlipidemia) Priority: Secondary Status: Chronic Assessment and Plan: Continue home statin Qualifiers: Hyperlipidemia type: mixed hyperlipidemia Qualified Code(s): E78.2 - Mixed hyperlipidemia (9) Prediabetes Priority: Secondary Status: Chronic Assessment and Plan: Hemoglobin A1c of 6.2. Lifestyle modification to lose weight and healthy diet advised. Consider metformin if no contraindications (10) Tobacco abuse Priority: Secondary Status: Chronic Assessment and Plan: Tobacco cessation discussed Hospital course: Mr. Arnold is a 53 year old male with a history of coronary artery disease with remote stent who was hospitalized here with chest pain along with nausea and vomiting. He was initially kept nothing by mouth and treated for the nausea which has now resolved. He then underwent cardiac stress test which did not show any signs of ischemia. However his ejection fraction was 45% on echocardiogram. Cardiology was consulted to evaluate this further. Patient was recommended left heart catheterization. He did not want this done at this time. As such cardiology adjusted his home medications and will follow up with him as outpatient for further management. Patient is chest pain-free at time of discharge. He does have chronic hypertension which is poorly controlled. His antihypertensive medications have been adjusted here and he will be sent for new prescriptions for medications started here. Titrate doses as needed. Discharge discussed with: patient, nurse - Time Spent with Patient Total time spent providing and/or coordinating discharge services: Time spent: Less than 30 minutes Date of admission: 12/08/18 17:09 Primary care physician: Panda Delatorre Consults: 12/10/18 10:41 Consult to Cardiology [CONS] Routine Comment: Consulting Provider: Cardiology Fabby Reason for Consult: EF 45%; Chest pain Time Notified: 10:41 Call Completed: Yes 12/11/18 08:40 Consult to Nurse Navigator [CONS] Routine Comment: CHF Discharging clinician: Koffi Wilkes Anticipated date of discharge: 12/11/18 - Constitutional Vitals: Temp Pulse Resp BP Pulse Ox 98.8 F 59 21 163/69 96 12/11/18 10:45 12/11/18 10:45 12/11/18 10:45 12/11/18 10:45 12/11/18 10:45 General appearance: Present: cooperative, A&O X 3, pleasant, answers questions appropriately Exam: awake - Head Head exam: Present: atraumatic, normocephalic - Eye Eye exam: Present: EOMI, conjuntiva pink, sclera anicteric - ENT ENT exam: Present: mucous membranes moist, normal oropharynx - Neck Neck exam general surgery: Present: supple, trachea midline - Respiratory Respiratory exam: Present: CTAB. Absent: accessory muscle use, rales, rhonchi, wheezes - Cardiovascular Cardiovascular exam: Present: RRR, +S1, +S2. Absent: diastolic murmur, gallop, rubs, systolic murmur - GI/Abdominal GI/Abdominal exam: Present: normal bowel sounds, soft, no peritoneal signs. Absent: distended, tenderness - Extremities Exam Extremities exam: Present: pedal edema (Right lower extremity status post vein graft, chronic), warm, radial pulses palpable and symmetrical. Absent: calf tenderness, cyanotic - Back Exam Back exam: Present: normal inspection. Absent: paraspinal tenderness, tenderness, vertebral tenderness - Neurological Exam Neurological exam: Present: CN II-XII intact, oriented X3, no focal deficits. Absent: facial droop, speech deficit - Psychiatric Psychiatric exam: Present: normal affect, normal mood - Skin Skin exam: Present: dry, intact, normal color Additional comments: Well-healed incision over right lower extremity status post vein graft - Patient Status Functional capacity at discharge: independent ambulation Overall status at discharge: patient is back to baseline - Diet and Activity Activity: increase activity as tolerated Diet: low fat, low cholesterol (Cardiac diet), low salt diet
[2018-12-11] MEDS ORDERED: Isosorbide MONOnitrate (24 HR) 30 MG TAB.ER.24H PO ONE (12:42)
[2018-12-11] MEDS ORDERED: *HR* Heparin 5,000 UNIT/ML VIAL SQ SCH (14:00)
[2018-12-11 14:17] VITALS: BP 112/69
--- NOTE | 2018-12-11 15:45 | Electrocardiograph Report ---
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
--- NOTE | 2018-12-11 15:55 | Electrocardiograph Report ---
[address] [place] [address] Test Date: 2018-12-09 Pat Name: Drake Arnold Department: 113 Room: 3B35 Gender: M Tong Setter: : 1965 Requested By: Zaida Schaefer Order Number: [id number] Reading MD: Shiva Weiner Measurements Intervals [place] Rate: 62 P: 28 [place]: 152 QRS: -12 QRSD: 113 T: 23 QT: 405 QTc: 411 Interpretive Statements SINUS RHYTHM WITH MARKED SINUS ARRHYTHMIA MINIMAL VOLTAGE CRITERIA FOR LVH, CONSIDER NORMAL VARIANT [MEETS CRITERIA IN ONE OF: R(aVL), S(V1), R(V5), R(V5/V6)+S(V1)] SEPTAL MYOCARDIAL INFARCTION [40+ ms Q WAVE IN V1/V2], PROBABLY RECENT ACUTE AK Electronically Signed On 12-11-2018 15:53:42 EDT by Shiva Weiner
[2018-12-12] MEDS ORDERED: Isosorbide MONOnitrate (24 HR) 30 MG TAB.ER.24H PO SCH (09:00)
== END 2018-12-11 14:15 | disposition home or self-care (01) ==
LOC: EMEROOARM 15:08 → 3BNU 15:08 → SUATTDRO 17:09 → 3BNU 17:54
PROVIDERS: ADMIT Internal Medicine Nephrology; ATTEND Internal Medicine